=== PATIENT | female | born 1930 | race Caucasian/White ===

== ENCOUNTER 2017-11-02 14:09 | Emergency (ER) | payer MEDICARE, BC ==
[2017-11-02] MEDS ORDERED: traMADol 50 MG Tab PO ONE (14:59)
--- NOTE | 2017-11-02 15:00 | EDM.PDOC ---
ED HPI GENERAL MEDICAL PROBLEM - General Chief Complaint: Back Pain or Injury Stated Complaint: BACK PAIN Time Seen by Provider: 11/02/17 14:17 Source of Information: Reports: Patient History Limitations: Reports: No Limitations - History of Present Illness INITIAL COMMENTS - FREE TEXT/NARRATIVE: 87 y/o F with back pain. Has had pain for three years but it's been much worse for the past 2 weeks. No known injury. Pain is located in lower back and is worse on the R side. Sometimes radiates down R leg. Off and on, worse with movement, difficult to get out of bed in the morning due to pain. No leg weakness or numbness. Is still able to walk. Taking advil and cyclobenzaprine which provides partial relief. Came to ED today because pain has been worsening. No recent illness. Lower Back Pain Score (Numeric/FACES): 7 - Related Data Allergies Allergy/AdvReac Type Severity Reaction Status Date / Time aspirin Allergy Cannot Verified 11/02/17 14:19 Remember paroxetine [From Paxil] Allergy Cannot Verified 11/02/17 14:19 Remember Penicillins Allergy Cannot Verified 11/02/17 14:19 Remember Home Meds: Home Meds Cyclobenzaprine [Flexeril] 5 mg PO ASDIRECTED PRN 11/02/17 [History] Flecainide Acetate 50 mg PO BID 11/02/17 [History] Metoprolol Succinate [Toprol XL] 25 mg PO DAILY 11/02/17 [History] Non-Formulary Medication [NF Drug] 30 mcg PO DAILY 11/02/17 [History] traMADol [Ultram] 50 mg PO TID PRN #30 tablet 11/02/17 [Rx] Past Medical History Cardiovascular History: Reports: Afib Musculoskeletal History: Reports: Arthritis - Past Surgical History GI Surgical History: Reports: Appendectomy Female Surgical History: Reports: Hysterectomy, Other (See Below) Other Female Surgeries/Procedures: lumpectomy Social & Family History - Tobacco Use Smoking Status *Q: Never Smoker Second Hand Smoke Exposure: No - Caffeine Use Caffeine Use: Reports: Coffee - Recreational Drug Use Recreational Drug Use: No ED ROS GENERAL - Review of Systems Review Of Systems: See Below Constitutional: Reports: No Symptoms Respiratory: Reports: No Symptoms Cardiovascular: Reports: No Symptoms GI/Abdominal: Reports: No Symptoms Musculoskeletal: Reports: Back Pain Neurological: Denies: Paresthesia, Difficulty Walking, Weakness ED EXAM,LOWER BACK PAIN/INJURY - Physical Exam Exam: See Below Exam Limited By: No Limitations General Appearance: Alert, WD/WN, No Apparent Distress Eye Exam: Bilateral Eye: Normal Inspection Ears: Normal External Exam Nose: Normal Inspection Throat/Mouth: Normal Inspection, Normal Voice, No Airway Compromise Head: Atraumatic, Normocephalic Neck: Normal Inspection, Supple, Non-Tender, Full Range of Motion Respiratory/Chest: No Respiratory Distress, Lungs Clear, Normal Breath Sounds Cardiovascular: Normal Peripheral Pulses, Regular Rate, Rhythm, No Murmur GI/Abdominal: Soft, Non-Tender, No Distention. No: Rebound Back Exam: Normal Inspection, Vertebral Tenderness (mild, diffuse lumbar area, no step-offs or deformities, skin normal. +paraspinal TTP throughout lower lumbar area. straight leg raise neg bilat. ) Extremities: Normal Inspection, No Pedal Edema Neurological: Alert, Normal Mood/Affect, Normal Dorsiflexion, Normal Plantar Flexion, No Motor/Sensory Deficits, Oriented x 3 Psychiatric: Normal Affect, Normal Mood Skin Exam: Warm, Dry, Intact, Normal Color, No Rash Course - Vital Signs Last Recorded V/S: Last Vital Signs Temp 36.8 C 11/02/17 14:16 Pulse 77 11/02/17 14:16 Resp 18 11/02/17 14:16 BP 140/81 11/02/17 14:16 Pulse Ox 96 11/02/17 14:16 - Orders/Labs/Meds Orders: Active Orders 24 hr Category Date Time Status Hip Min 2V or 3V w Pelvis Rt [CR] Stat Exams 11/02/17 14:59 Taken Lumbar Spine 2 or 3V [CR] Stat Exams 11/02/17 14:59 Taken Meds: Medications Discontinued Medications Generic Name Dose Route Start Last Admin Trade Name Freq PRN Reason Stop Dose Admin Tramadol HCl 50 mg 11/02/17 14:59 11/02/17 15:04 Ultram PO 11/02/17 15:00 50 mg ONETIME ONE Administration - Re-Assessments/Exams Free Text/Narrative Re-Assessment/Exam: 11/02/17 17:22 XR L spine shows diffuse compression deformities and degenerative disease of lumbar spine. CT scan also shows several compression deformities, acuity unknown. Patient feels better after tramadol. She had MRI scheduled for a couple of days ago but was in too much pain so cancelled it. I encouraged her to f/u with her primary care provider this week to reschedule MRI and also discuss possible physical therapy. meanwhile will rx tramadol, discussed risks at length and encouraged her to reserve it for severe pain symptoms. Departure - Departure Time of Disposition: 17:06 Disposition: Home, Self-Care 01 Clinical Impression: Back pain Qualifiers: Back pain location: low back pain Chronicity: acute Back pain laterality: bilateral Sciatica presence: with sciatica Sciatica laterality: sciatica of right side Qualified Code(s): M54.41 - Lumbago with sciatica, right side - Discharge Information Prescriptions: traMADol [Ultram] 50 mg PO TID PRN #30 tablet PRN Reason: Pain Instructions: Back Pain, Adult Referrals: Aisha Lorenzo NP [Primary Care Provider] - Forms: ED Department Discharge Additional Instructions: 1. Take your usual medications for pain. In addition, you may take Tylenol ( acetaminophen). For severe, pain, take Tramadol as prescribed. 2. Follow up with your primary care provider in [place], who can consider referring you to physical therapy and for an MRI. - My Orders Last 24 Hours: My Active Orders 11/02/17 14:59 Hip Min 2V or 3V w Pelvis Rt [CR] Stat Lumbar Spine 2 or 3V [CR] Stat - Assessment/Plan Last 24 Hours: My Active Orders 11/02/17 14:59 Hip Min 2V or 3V w Pelvis Rt [CR] Stat Lumbar Spine 2 or 3V [CR] Stat
--- NOTE | 2017-11-02 16:56 | CT ---
CT lumbar spine Technique: Multiple axial sections were obtained from the top of T10 inferiorly through the L5-S1 disc. Reconstructed sagittal and coronal images were reviewed. Comparison: No previous CT or MRI lumbar spine exam. Findings: Mild endplate concavity is seen within T11. Severe compression deformity is noted of T12. Moderate endplate concavities and compression deformity is noted within L2. Severe compression deformity noted of L3. Moderate compression deformity seen at L5. I do not see a definite acute fracture line although compression deformities can occur without obvious fracture lines and MRI would be needed to evaluate for bone marrow edema to further age these compression deformities if clinically indicated. Scoliosis is seen. Mild retrolisthesis of the posterior vertebral line of T12 is seen by about 3.7 mm. There is sufficient room within the central canal at T12 so this is felt to be incidental. Diffuse circumferential disc bulging is seen throughout the lumbar spine and lower thoracic spine. Degenerative apophyseal change noted throughout the lumbar spine which is most prominent at L4-L5 and L5-S1. No significant central canal stenosis or neural foraminal stenosis is seen. Impression: 1. Scoliosis. 2. Multiple compression deformities. No definite acute fracture line is seen. As mentioned above, MRI would be needed to look for bone marrow edema to rule out an acute compression deformity. 3. Diffuse disc bulging with no definite areas of central or neural foraminal stenosis. Diagnostic code #3
--- NOTE | 2017-11-04 08:33 | CR ---
Lumbar spine: AP, lateral and coned-down lateral views centered to the lumbosacral junction were obtained. Comparison: No prior lumbar spine exam. Compression deformities are seen of T12, L2, L3 and superior endplate concavity of L5. Bony structures are osteoporotic. Scoliosis is noted. Calcifications are seen within the upper right abdomen possibly due to gallstones. No abnormal subluxation is seen. Pedicles are intact. Impression: 1. Multiple compression deformities. Age of these are indeterminate. MRI would be needed to further age these findings if clinically needed. 2. Probable gallstones. 3. Scoliosis and osteoporosis. Diagnostic code #3
--- NOTE | 2017-11-04 08:33 | CR ---
Pelvis and right hip: AP view of the pelvis was obtained as well as AP and frog-leg lateral views of the right hip. Comparison: No prior pelvis or hip exam. Calcification overlying the sacrum is seen. This is felt to represent calcification within lymph nodes and also felt to be incidental. Joint spaces within both hips are maintained. Bony structures are osteopenic. No acute fracture or other abnormality is identified. Impression: 1. Incidental findings. Nothing acute is identified on AP pelvis or on two-view right hip exam. Diagnostic code #2
== END 2017-11-02 17:45 | disposition home or self-care (01) ==
LOC: JD.ED 14:09
DX: M54.41 Lumbago with sciatica, right side (principal); Z88.0 Allergy status to penicillin; Z88.8 Allergy status to other drugs, medicaments and biological substances; Z79.899 Other long term (current) drug therapy
CPT/HCPCS: 72100; 72131; 73502; 99284; A9270; 99283

== ENCOUNTER 2017-12-05 06:33 | Day surgery (SDC) | payer MEDICARE, BC ==
--- NOTE | 2017-11-29 11:09 | HP ---
DATE OF ADMISSION: 12/05/2017 HISTORY OF PRESENT ILLNESS: This is the first orthopedic outpatient admission for surgery for this 87-year- old female who is being admitted with severe painful, osteoporotic compression fracture of T12. The patient suffered the injury in October 2017. She was placed on a conservative treatment program. She has continued to have increasing pain in the back area with the average pain scale of 9 to 10 with any type of activity, her functional activity has decreased to less than 10% of normal. She also underwent an MRI evaluation which shows a fairly significant osteoporotic compression fracture of T12 with a fluid, cystic formation within the vertebral body itself, lending itself to an unstable fracture. The patient has been given the information on kyphoplasty and also a handout. She understands the procedure and has consented to it. PAST MEDICAL HISTORY: ALLERGIES: Aspirin, Paxil, penicillin with hives, clindamycin. PAST SURGICAL HISTORY: Positive. She has had multiple surgeries in the past with no anesthesia complications or problems. PAST MEDICAL HISTORY: She has decreased thyroid function. She has increased cholesterol. She also has a standing history of atrial fibrillation. CURRENT MEDICATIONS: Current medications include thyroid, metoprolol, tramadol for pain control, and Tambocor. BLEEDING HISTORY: Negative. BLOOD CLOT HISTORY: Negative. TOBACCO USE: Nonsmoker. ALCOHOL: Nondrinker. PHYSICAL EXAMINATION: GENERAL: Today, reveals a well-developed, well-nourished, 87-year-old female in [id number] distress. HEAD, EYES, EARS, NOSE AND THROAT: Normocephalic. NECK: Supple. CHEST: Clear. COR: Shows a history of atrial fibrillation. ABDOMEN: Soft. : Intact. MUSCULOSKELETAL: Examination of the thoracolumbar spine reveals positive pain to pressure palpation over the TL junction region. Positive pain with percussion. RADIOGRAPHIC STUDIES: MRI evaluation shows an acute compression fracture of T12 with cyst formation. PLAN: Plan will be for the patient undergo kyphoplasty fracture stabilization of the T12 vertebral body-with a history of clindamycin allergy, I feel that we will go ahead and stabilize this fracture with cement only with no antibiotic. MMODAL /[id number] JANIA
--- NOTE | 2017-12-05 06:29 | PCM.PREANE ---
Preanesthetic Assessment - Anesthesia/Transfusion/Family Hx Anesthesia History: Prior Anesthesia Without Reaction Type of Anesthesia Reaction: Excessive Nausea/Vomiting Family History of Anesthesia Reaction: No Transfusion History: No Prior Transfusion(s) Intubation History: Unknown - Review of Systems General: Weakness, Fatigue, Malaise Pulmonary: No Symptoms Cardiovascular: No Symptoms (History of HTN, atrial fibrillation, and tachycardia), Palpitations (History of Atrial fibrillation, currently in SR.) Gastrointestinal: No Symptoms (GERD), Decreased Appetite Neurological: No Symptoms (history of back pain/ history of motion sickness), Weakness Other: Reports: Thyroid Problems (hypothyroid), Depression, Anxiety (History of anxiety ) - Physical Assessment NPO Status Date: 12/04/17 NPO Status Time: 17:00 Pulse: 70 O2 Sat by Pulse Oximetry: 97 Respiratory Rate: 16 Blood Pressure: 130/80 Temperature: 36.7 C Height: 1.55 m Weight: 45 kg ASA Class: 2 Mental Status: Alert & Oriented x3 Airway Class: Mallampati = 2 Dentition: Reports: Normal Dentition, Missing Tooth/Teeth, Caries Thyro-Mental Finger Breadths: 3 Mouth Opening Finger Breadths: 3 ROM/Head Extension: Full Lungs: Clear to Auscultation, Normal Respiratory Effort Cardiovascular: Regular Rate, Regular Rhythm, No Murmurs - Lab Values: MRSA - All lab values reviewed and noted and within acceptable ranges to proceed with scheduled procedure. - Imaging/EKG Impressions: EKG: SR rate= 74, borderline prolonged QT interval - Allergies Allergies/Adverse Reactions: Allergies Allergy/AdvReac Type Severity Reaction Status Date / Time aspirin Allergy Cannot Verified 12/04/17 15:42 Remember paroxetine [From Paxil] Allergy Cannot Verified 12/04/17 15:42 Remember Penicillins Allergy Cannot Verified 12/04/17 15:42 Remember procaine [From Novocain] Allergy Tachycardia Verified 12/04/17 15:42 - Anesthesia Plan Pre-Op Medication Ordered: Beta Hemant Beta Hemant: Metoprolol Med Last Dose Date: 12/04/17 Med Last Dose Time: 06:00 - Acknowledgements Anesthesia Type Planned: MAC (Local/Mac) Pt an Appropriate Candidate for the Planned Anesthesia: Yes Alternatives and Risks of Anesthesia Discussed w Pt/Guardian: Yes Pt/Guardian Understands and Agrees with Anesthesia Plan: Yes PreAnesthesia Questionnaire HEENT History: Reports: Impaired Vision Cardiovascular History: Reports: Afib, High Cholesterol, Hypertension, Other ( See Below) Other Cardiovascular History: tachycardia Respiratory History: Reports: None Gastrointestinal History: Reports: Irritable Bowel Syndrome [employer]IST History: Reports: None Musculoskeletal History: Reports: Arthritis, Other (See Below) Other Musculoskeletal History: compression fracture Neurological History: Reports: None Psychiatric History: Reports: Anxiety Endocrine/Metabolic History: Reports: None Hematologic History: Reports: Anemia Immunologic History: Reports: None Oncologic (Cancer) History: Reports: None Dermatologic History: Reports: None - Past Surgical History Head Surgeries/Procedures: Reports: None HEENT Surgical History: Reports: Cataract Surgery, Other (See Below) Other HEENT Surgeries/Procedures: salivary stone extraction Cardiovascular Surgical History: Reports: Varicose Respiratory Surgical History: Reports: None GI Surgical History: Reports: Appendectomy Female Surgical History: Reports: Hysterectomy, Oophorectomy, Other (See Below) Other Female Surgeries/Procedures: breast lumpectomy, lymph node removed from left arm Endocrine Surgical History: Reports: None Neurological Surgical History: Reports: None Oncologic Surgical History: Reports: None Dermatological Surgical History: Reports: None - SUBSTANCE USE Smoking Status *Q: Never Smoker Tobacco Use Within Last Twelve Months: No Second Hand Smoke Exposure: No Recreational Drug Use History: No - HOME MEDS Home Medications: Home Meds Cyclobenzaprine [Flexeril] 5 mg PO ASDIRECTED PRN 11/02/17 [History] Flecainide Acetate 50 mg PO BID 11/02/17 [History] Metoprolol Succinate [Toprol XL] 25 mg PO DAILY 11/02/17 [History] traMADol [Ultram] 50 mg PO TID PRN #30 tablet 11/02/17 [Rx] Cholecalciferol (Vitamin D3) [Vitamin D3] 1,000 unit PO DAILY 12/04/17 [History] [place]-3S/DHA/Epa/Fish Oil [[place]-3 Fish Oil 1,000 mg Sfgl] 1 cap PO DAILY [History] Thyroid [[place] Thyroid] 30 mg PO DAILY 12/04/17 [History] - CURRENT (IN HOUSE) MEDS Current Meds: Current Medications Lactated Ringer's (Ringers, Lactated) 1,000 mls @ 125 mls/hr IV ASDIRECTED CHLOE Stop: 12/05/17 23:00 Lidocaine/Sodium Bicarbonate (Buffered Lidocaine 1% In Ns 8.4%) 0.25 ml .XX ONETIME PRN PRN Reason: Prior to IV Start Stop: 12/05/17 18:00 Sodium Chloride (Saline Flush) 10 ml FLUSH ASDIRECTED PRN PRN Reason: Keep Vein Open Stop: 12/05/17 18:00
[~2017-12-05 06:33] MED LIST: Lactated Ringers 1,000 ML IV SCH; Lidocaine 1%/Sod Bicarbonate in NS 8.4% 1 ML Syringe PRN; Sodium Chloride 0.9% 10 ML Syringe FLUSH PRN
[2017-12-05] MEDS ORDERED: Iopamidol 612 MG/ML 50 ML SDV ONE (06:56)
[2017-12-05] MEDS ORDERED: Lidocaine 1% with EPINEPHrine 1:100,000 20 ML MDV ONE (06:56)
[2017-12-05] MEDS ORDERED: ceFAZolin 1 GM Vial ONE (07:00)
[2017-12-05] MEDS ORDERED: Propofol 200 MG/20 ML SDV ONE (07:00)
[2017-12-05] MEDS ORDERED: Lidocaine 1% 6 ML ONE (07:00)
[2017-12-05] MEDS ORDERED: Ondansetron 4 MG/2 ML SDV ONE (07:00)
[2017-12-05] MEDS ORDERED: fentaNYL 100 MCG/2 ML SDV ONE (07:01)
[2017-12-05] MEDS ORDERED: Acetaminophen/HYDROcodone 325-5 MG Tab PO PRN (07:43)
[2017-12-05] MEDS ORDERED: Ondansetron 4 MG/2 ML SDV IVPUSH PRN (07:43)
[2017-12-05] MEDS ORDERED: Cyclobenzaprine 10 MG Tab PO PRN (07:43)
[2017-12-05] MEDS ORDERED: Ketorolac 15 MG/ML SDV IVPUSH PRN (07:43)
[2017-12-05] MEDS ORDERED: HYDROmorphone 0.5 MG/0.5 ML Syringe IVPUSH PRN (08:14)
[2017-12-05] MEDS ORDERED: diphenhydrAMINE 50 MG/ML SDV IVPUSH PRN (08:14)
--- NOTE | 2017-12-05 09:06 | PCM48HPAN ---
Post Anesthesia Note - EVALUATION WITHIN 48HRS OF ANESTHETIC Vital Signs in Normal Range: Yes Patient Participated in Evaluation: Yes Respiratory Function Stable: Yes Airway Patent: Yes Cardiovascular Function Stable: Yes Hydration Status Stable: Yes Pain Control Satisfactory: Yes Nausea and Vomiting Control Satisfactory: Yes Mental Status Recovered: Yes
--- NOTE | 2017-12-05 10:08 | CR ---
Thoracic spine: Multiple fluoroscopic spot views were obtained centered to the T12 level. Study shows vertebroplasty procedure. Fluoroscopy time given as 432.9 seconds. Impression: 1. Procedural study as noted above. Diagnostic code #2
--- NOTE | 2017-12-05 12:02 | OR ---
DATE OF OPERATION: 12/05/2017 SURGEON: Wero Trevino MD PREOPERATIVE DIAGNOSIS: Acute osteoporotic compression fracture, T12, intractable pain. POSTOPERATIVE DIAGNOSIS: Acute osteoporotic compression fracture, T12, intractable pain. ANESTHESIA: Sedation with 1% lidocaine with epinephrine. OPERATION PERFORMED: 1. Kyphoplasty fracture stabilization at T12 vertebral body. 2. Biopsy of T12 vertebral body. DESCRIPTION OF PROCEDURE: The patient was taken to the operative room in a supine position, where she was placed under light sedation and then transferred to the operating table in a prone position. Once the patient was positioned, the fluoroscopy was brought in to identify the level of surgery at T12. Once that was confirmed, the operation proceeded with marking of the pedicles, and then prepping and draping was carried out for the thoracic lumbar spine region for surgery by standard technique. After prepping and draping, the operation then proceeded. By fluoroscopic guidance, the local infiltration was carried over the skin on the pedicles on the right and left side of T12 and then the infiltration, lidocaine with epinephrine, was carried down to the pedicle itself, anesthetizing the area on both sides. Once that was completed, 2 small stab incisions were used on the right and left sides. Instrumentation with the kyphoplasty unit was then carried out with the instruments being carried down through the pedicle into the posterior aspect of the vertebral body. Biopsy was then taken on both the right and left sides, and a similar technique was used on the left side as the right side. Biopsies were taken on both sides and then the operation proceeded with placement of balloons. Approximately, 1.5 mL of inflation was carried out. Immediate note, the posterior portion of vertebral body was fairly firm, but once the center of the vertebral body was reached with a biopsy, there was complete hollow and fluid was filling the vertebral body. Once the balloons were in place, the operation proceeded with placement of cement. Approximately 2.5 mL of cement was placed on each side, totalling 5 mL. This gave a very good solid fill of the vertebral body, filling in the area that was fractured and, especially, the hollow-type area that could be seen on the MRI. Once the cement had hardened, the instruments were withdrawn. The final x-rays showed it to be very satisfactory with good cement filling of the vertebral body itself. The operation then proceeded with closure of the skin with 3-0 Prolene. Standard dressings were applied. The patient tolerated this procedure well. She left the operating room in a stable condition to room for recovery. ESTIMATED BLOOD LOSS: MMODAL /[id number]
== END 2017-12-05 12:25 | disposition home or self-care (01) ==
LOC: JD.SDS 06:33
PROVIDERS: ATTEND Specialist
DX: M80.88XA Other osteoporosis with current pathological fracture, vertebra(e), initial encounter for fracture (principal); I48.91 Unspecified atrial fibrillation; E78.00 Pure hypercholesterolemia, unspecified; I10 Essential (primary) hypertension; M19.90 Unspecified osteoarthritis, unspecified site; F41.9 Anxiety disorder, unspecified; Z98.890 Other specified postprocedural states; Z88.6 Allergy status to analgesic agent; Z88.0 Allergy status to penicillin; Z88.8 Allergy status to other drugs, medicaments and biological substances; Z88.1 Allergy status to other antibiotic agents; Z90.710 Acquired absence of both cervix and uterus; Z90.722 Acquired absence of ovaries, bilateral; Z79.899 Other long term (current) drug therapy
CPT/HCPCS: 22513; 93005; J0690; J1200; J2405; J3010; J7120; Q9967; 01936; 88305; 88311; C1713; J2704

== ENCOUNTER 2017-12-30 16:43 | Observation (INO) | payer MEDICARE, BC ==
[2017-12-30] MEDS ORDERED: Sodium Chloride 0.9% 10 ML Syringe FLUSH PRN (17:13)
[2017-12-30] MEDS ORDERED: HYDROmorphone 1 MG/ML Syringe IVPUSH ONE (17:13)
[2017-12-30] MEDS ORDERED: Ondansetron 4 MG/2 ML SDV IVPUSH ONE (17:16)
--- NOTE | 2017-12-30 17:16 | EDM.PDOC ---
ED HPI GENERAL MEDICAL PROBLEM - General Chief Complaint: Back Pain or Injury Stated Complaint: [facility] Time Seen by Provider: 12/30/17 16:48 Source of Information: Reports: Patient, RN Notes Reviewed - History of Present Illness INITIAL COMMENTS - FREE TEXT/NARRATIVE: 87-year-old lady comes in with severe back pain. She had a kyphoplasty about 1 month ago and did really well postoperatively she's been getting along quite well with minimal back discomfort up until about 2 or 3 days ago. She started having increasing low back discomfort 2 days ago which became much worse yesterday. That became even worse today to the point where family was unable to even help her get up and walk. For ambulance was called she has been transported here without further incident. The pain is in her low back with some radiation down toward the buttocks bilaterally. Her previous kyphoplasty was in her mid back. There's been no fall or injury. The pain is not bad at rest but quite severe with any type of motion. she has been taking Advil 600 mg once or twice a day. No cough, chest pain or difficulty breathing. No fever or chills. No abdominal pain nausea or vomiting. Bilateral Lower Back Pain Score (Numeric/FACES): 10 - Related Data Allergies Allergy/AdvReac Type Severity Reaction Status Date / Time paroxetine [From Paxil] Allergy Cannot Verified 12/30/17 16:56 Remember Penicillins Allergy Cannot Verified 12/30/17 16:56 Remember aspirin AdvReac Stomach Verified 12/30/17 16:56 Upset clindamycin AdvReac Weakness Verified 01/01/18 08:13 procaine [From Novocain] AdvReac Tachycardia Verified 12/30/17 16:56 Home Meds: Home Meds Cyclobenzaprine [Flexeril] 5 mg PO ASDIRECTED PRN 11/02/17 [History] Flecainide Acetate 50 mg PO BID 11/02/17 [History] Metoprolol Succinate [Toprol XL] 25 mg PO DAILY 11/02/17 [History] traMADol [Ultram] 50 mg PO TID PRN #30 tablet 11/02/17 [Rx] Cholecalciferol (Vitamin D3) [Vitamin D3] 1,000 unit PO DAILY 12/04/17 [History] [place]-3S/DHA/Epa/Fish Oil [[place]-3 Fish Oil 1,000 mg Sfgl] 1 cap PO DAILY [History] Thyroid [[place] Thyroid] 30 mg PO DAILY 12/04/17 [History] Calcium Carbonate [Tums Extra Strength] 1 tab PO ASDIRECTED PRN 12/30/17 [ History] Hypromellose [Genteal Mild] 1 drop EYEBOTH DAILY 12/30/17 [History] Celecoxib [CeleBREX] 100 mg PO BID #40 cap 01/01/18 [Rx] Past Medical History HEENT History: Reports: Impaired Vision Cardiovascular History: Reports: Afib, High Cholesterol, Hypertension, Other ( See Below) Other Cardiovascular History: tachycardia Respiratory History: Reports: None Gastrointestinal History: Reports: Irritable Bowel Syndrome [employer]INTE[employer]ER History: Reports: None Musculoskeletal History: Reports: Arthritis, Other (See Below) Other Musculoskeletal History: compression fracture Neurological History: Reports: None Psychiatric History: Reports: Anxiety Endocrine/Metabolic History: Reports: Hypothyroidism Hematologic History: Reports: Anemia Immunologic History: Reports: None Oncologic (Cancer) History: Reports: None Dermatologic History: Reports: None - Past Surgical History Head Surgeries/Procedures: Reports: None HEENT Surgical History: Reports: Cataract Surgery, Other (See Below) Other HEENT Surgeries/Procedures: salivary stone extraction Cardiovascular Surgical History: Reports: Varicose Respiratory Surgical History: Reports: None GI Surgical History: Reports: Appendectomy Female Surgical History: Reports: Hysterectomy, Oophorectomy, Other (See Below) Other Female Surgeries/Procedures: breast lumpectomy, lymph node removed from left arm Endocrine Surgical History: Reports: None Neurological Surgical History: Reports: None Musculoskeletal Surgical History: Reports: Other (See Below) Other Musculoskeletal Surgeries/Procedures:: kyphoplasty Oncologic Surgical History: Reports: None Dermatological Surgical History: Reports: None Social & Family History - Family History Family Medical History: Noncontributory - Tobacco Use Smoking Status *Q: Never Smoker Second Hand Smoke Exposure: No - Caffeine Use Caffeine Use: Reports: Coffee - Recreational Drug Use Recreational Drug Use: No ED ROS GENERAL - Review of Systems Review Of Systems: See Below Constitutional: Denies: Fever, Chills, Diaphoresis HEENT: Denies: Throat Pain Respiratory: Denies: Shortness of Breath Cardiovascular: Denies: Chest Pain GI/Abdominal: Denies: Abdominal Pain, Nausea, Vomiting : Reports: No Symptoms Musculoskeletal: Reports: Back Pain (Severe low back discomfort radiating to buttocks bilaterally, worse with motion) Skin: Reports: No Symptoms. Denies: Rash Neurological: Denies: Numbness, Tingling ED EXAM,LOWER BACK PAIN/INJURY - Physical Exam Exam: See Below General Appearance: Alert, Mild Distress, Other (Severe pain with any type of motion such as sitting up for exam of back) Eye Exam: Bilateral Eye: PERRL Throat/Mouth: Normal Inspection Head: Atraumatic Neck: Supple, Full Range of Motion Respiratory/Chest: No Respiratory Distress, Lungs Clear, Normal Breath Sounds Cardiovascular: Regular Rate, Rhythm GI/Abdominal: Soft, Non-Tender Back Exam: Other (Small pinpoint scars mid back area of prior kyphoplasty of healed well, no unusual swelling or erythema). No: Paraspinal Tenderness, Vertebral Tenderness Extremities: Normal Inspection, Normal Range of Motion. No: Leg Pain, Increased Warmth, Redness Neurological: Alert, No Motor/Sensory Deficits Skin Exam: Warm, Dry, Normal Color Course - Vital Signs Last Recorded V/S: Last Vital Signs Temp 97.9 F 01/01/18 10:00 Pulse 69 01/01/18 10:00 Resp 16 01/01/18 10:00 BP 117/75 01/01/18 10:00 Pulse Ox 93 L 01/01/18 10:00 - Orders/Labs/Meds Orders: Medication Orders Hydrocodone Bitart/Acetaminophen ([place] 325-5 Mg) 1 tab PO Q6H PRN PRN Reason: Pain Bisacodyl (Dulcolax) 5 mg PO DAILY PRN PRN Reason: Constipation Celecoxib (Celebrex) 100 mg PO BID [facility] Last Admin: 01/01/18 09:57 Dose: 100 mg Cholecalciferol (Vitamin D3) 1,000 units PO DAILY [facility] Last Admin: 01/01/18 09:58 Dose: 1,000 units Admin: 12/31/17 10:27 Dose: 1,000 units Cyclobenzaprine HCl (Flexeril) 2.5 - 5 mg PO Q8H PRN PRN Reason: Muscle Spasm Docusate Sodium (Colace) 100 mg PO BID PRN PRN Reason: Constipation Enoxaparin Sodium (Lovenox) 30 mg SUBCUT DAILY [facility] Last Admin: 01/01/18 09:58 Dose: 30 mg Admin: 12/31/17 11:20 Dose: 30 mg Fish Oil (Fish Oil) 1 gm PO DAILY [facility] Last Admin: 01/01/18 09:58 Dose: 1 gm Admin: 12/31/17 10:25 Dose: 1 gm Flecainide Acetate (Tambocor) 50 mg PO BID [facility] Last Admin: 01/01/18 09:58 Dose: 50 mg Admin: 12/31/17 22:23 Dose: 50 mg Admin: 12/31/17 10:28 Dose: Admin: 12/31/17 10:25 Dose: 50 mg Hydromorphone HCl (Dilaudid) 1 mg IVPUSH Q4H PRN PRN Reason: Pain Metoprolol Succinate (Toprol Xl) 25 mg PO DAILY [facility] Last Admin: 01/01/18 09:58 Dose: 25 mg Admin: 12/31/17 10:26 Dose: 25 mg Ondansetron HCl (Zofran Odt) 4 mg PO Q6H PRN PRN Reason: nausea, able to take PO Ondansetron HCl (Zofran) 4 mg IV Q6H PRN PRN Reason: Nausea/Vomiting Hypromellose [ (Genteal Mild] 1 Drop) 0 each EYEBOTH DAILY [facility] Last Admin: 01/01/18 09:58 Dose: 2 each Admin: 12/31/17 10:26 Dose: Not Given [place] Thyroid 30 Mg 0 each PO DAILY [facility] Last Admin: 01/01/18 09:58 Dose: Admin: 12/31/17 10:26 Dose: Calcium Carbonate 1 (Tab) 0 each PO Q4H PRN PRN Reason: HEARTBURN Polyethylene Glycol (Miralax) 17 gm PO DAILY PRN PRN Reason: Constipation Senna/Docusate Sodium (Senna Plus) 1 tab PO BID PRN PRN Reason: Constipation Sodium Chloride (Saline Flush) 10 ml FLUSH ASDIRECTED PRN PRN Reason: Keep Vein Open Last Admin: 12/30/17 17:41 Dose: 10 ml Tramadol HCl (Ultram) 50 mg PO TID PRN PRN Reason: Pain Last Admin: 01/01/18 11:44 Dose: 50 mg Admin: 01/01/18 04:31 Dose: 50 mg Admin: 12/31/17 18:09 Dose: 50 mg Labs: Laboratory Tests 02/12/18 02/12/18 Range/Units 17:42 17:42 WBC 6.19 (3.98-10.04) K/mm3 RBC 4.15 (3.98-5.22) M/mm3 Hgb 12.5 (11.2-15.7) gm/L Hct 38.3 (34.1-44.9) % MCV 92.3 (79.4-94.8) fl MCH 30.1 (25.6-32.2) pg MCHC 32.6 (32.2-35.5) g/dl RDW Std Deviation 45.9 (36.4-46.3) fL Plt Count 203 (182-369) K/mm3 MPV 10.0 (9.4-12.3) fl Neut % (Auto) 61.9 (34.0-71.1) % Lymph % (Auto) 21.6 (19.3-51.7) % [place] % (Auto) 13.6 H (4.7-12.5) % Eos % (Auto) 2.4 (0.7-5.8) Baso % (Auto) 0.3 (0.1-1.2) % Neut # (Auto) 3.83 (1.56-6.13) K/mm3 Lymph # (Auto) 1.34 (1.18-3.74) K/mm3 [place] # (Auto) 0.84 H (0.24-0.36) K/mm3 Eos # (Auto) 0.15 (0.04-0.36) K/mm3 Baso # (Auto) 0.02 (0.01-0.08) K/mm3 Sodium 141 (136-145) mEq/L Potassium 3.1 L (3.5-5.1) mEq/L Chloride 104 (98-107) mEq/L Carbon Dioxide 25 (21-32) mEq/L Anion Gap 15.1 H (5-15) BUN 15 (7-18) mg/dL Creatinine 1.1 H (0.55-1.02) mg/dL Est Cr Clr Drug Dosing 27.70 mL/min Estimated GFR (MDRD) 47 (>60) mL/min BUN/Creatinine Ratio 13.6 L (14-18) Glucose 109 (83-115) mg/dL Calcium 9.2 (8.5-10.1) mg/dL Total Bilirubin 0.5 (0.2-1.0) mg/dL AST 22 (15-37) U/L ALT 16 (14-59) U/L Alkaline Phosphatase 72 (46-116) U/L Total Protein 7.6 (6.4-8.2) g/dl Albumin 3.1 L (3.4-5.0) g/dl Globulin 4.5 gm/dL Albumin/Globulin Ratio 0.7 L (1-2) Meds: Medications Generic Name Dose Route Start Last Admin Trade Name Freq PRN Reason Stop Dose Admin Hydrocodone Bitart/Acetaminophen 1 tab 12/30/17 20:21 [place] 325-5 Mg PO Q6H PRN Pain Bisacodyl 5 mg 12/31/17 18:27 Dulcolax PO DAILY PRN Constipation Celecoxib 100 mg 01/01/18 09:00 01/01/18 09:57 Celebrex PO 100 mg BID [facility] Administration Cholecalciferol 1,000 units 12/31/17 09:00 01/01/18 09:58 Vitamin D3 PO 1,000 units DAILY [facility] Administration Cyclobenzaprine HCl 2.5 - 5 mg 12/30/17 20:18 Flexeril PO Q8H PRN Muscle Spasm Docusate Sodium 100 mg 12/31/17 18:27 Colace PO BID PRN Constipation Enoxaparin Sodium 30 mg 12/31/17 11:00 01/01/18 09:58 Lovenox SUBCUT 30 mg DAILY [facility] Administration Fish Oil 1 gm 12/31/17 09:00 01/01/18 09:58 Fish Oil PO 1 gm DAILY [facility] Administration Flecainide Acetate 50 mg 12/30/17 21:00 01/01/18 09:58 Tambocor PO 50 mg BID [facility] Administration Hydromorphone HCl 1 mg 12/30/17 20:20 Dilaudid IVPUSH Q4H PRN Pain Metoprolol Succinate 25 mg 12/31/17 09:00 01/01/18 09:58 Toprol Xl PO 25 mg DAILY [facility] Administration Ondansetron HCl 4 mg 12/31/17 18:27 Zofran Odt PO Q6H PRN nausea, able to take PO Ondansetron HCl 4 mg 12/31/17 18:27 Zofran IV Q6H PRN Nausea/Vomiting Hypromellose [ 0 each 12/31/17 09:00 01/01/18 09:58 Genteal Mild] 1 Drop EYEBOTH 2 each DAILY [facility] Administration [place] Thyroid 30 Mg 0 each 12/31/17 09:00 01/01/18 09:58 PO Not Given DAILY [facility] Calcium Carbonate 1 0 each 01/01/18 08:14 Tab PO Q4H PRN HEARTBURN Polyethylene Glycol 17 gm 12/31/17 18:27 Miralax PO DAILY PRN Constipation Senna/Docusate Sodium 1 tab 12/31/17 18:27 Senna Plus PO BID PRN Constipation Sodium Chloride 10 ml 12/30/17 17:13 12/30/17 17:41 Saline Flush FLUSH 10 ml ASDIRECTED PRN Administration Keep Vein Open Tramadol HCl 50 mg 12/30/17 20:18 01/01/18 11:44 Ultram PO 50 mg TID PRN Administration Pain Discontinued Medications Generic Name Dose Route Start Last Admin Trade Name Freq PRN Reason Stop Dose Admin Acetaminophen 650 mg 12/30/17 17:32 12/30/17 17:41 Tylenol PO 12/30/17 17:33 650 mg NOW ONE Administration Hydromorphone HCl 0.25 mg 12/30/17 17:13 12/30/17 17:42 Dilaudid IVPUSH 12/30/17 17:14 Not Given ONETIME ONE Hydromorphone HCl Confirm 12/30/17 17:26 12/30/17 17:43 Dilaudid Administered 12/30/17 17:27 0.25 mg Dose Administration 0.5 mg .ROUTE .STK-MED ONE Sodium Chloride 1,000 mls @ 50 mls/hr 12/31/17 13:15 12/31/17 13:41 Sodium Chloride 0.45% IV 01/01/18 01:15 50 mls/hr ASDIRECTED [facility]E Administration Ketorolac Tromethamine 15 mg 12/30/17 20:23 01/01/18 02:00 Toradol IVPUSH 15 mg Q8H PRN Administration Pain Lorazepam 0.25 mg 12/30/17 17:33 12/30/17 17:41 Ativan PO 12/30/17 17:34 0.25 mg ONETIME ONE Administration Calcium Carbonate 1 0 tab 12/30/17 20:18 Tab PO Q4H PRN HEARTBURN Ondansetron HCl 4 mg 12/30/17 17:16 12/30/17 17:43 Zofran IVPUSH 12/30/17 17:17 4 mg ONETIME ONE Administration Pneumococcal 13-Valent Conj Vacc 0.5 ml 01/01/18 12:09 01/01/18 13:29 Prevnar 13 IM 01/01/18 12:10 Not Given .ONCE ONE Pneumococcal Polyvalent Vaccine 0.5 ml 12/31/17 11:00 01/01/18 13:29 Pneumovax 23 IM 12/31/17 11:01 Not Given .ONCE ONE Potassium Chloride 40 meq 12/31/17 10:30 12/31/17 22:22 Klor-Con M20 PO 01/01/18 23:00 40 meq BID [facility]E Administration - Re-Assessments/Exams Free Text/Narrative Re-Assessment/Exam: 12/30/17 18:44 X-rays of the low back do show the area of prior kyphoplasty. There are severe degenerative changes up and down her spine. Lumbar spine not well visualized due to a lot of overlying shadows. It does look like there is probable compression deformity of L3 and also L1. 12/30/17 18:46. We have given 0.25 milligrams Dilaudid IV, Ativan 0.25 mg IV, Tylenol 650 mg by mouth. With that our nurses did have her to the bathroom a short time ago. Watch her transferring from wheelchair to her bed she did not do well with that at all, had quite a lot of severe pain even with 2 staff nurses helping her. Look like she is a candidate to go home tonight. She lives alone. Family could be with her some of the time tonight but she will have nobody with her tomorrow. Therefore I'm going to see if we can possibly get her admitted observation status for pain management and control, Orthopedic consult in the morning. Departure - Departure Time of Disposition: 19:04 Disposition: Refer to Observation Condition: Poor Clinical Impression: Low back pain Qualifiers: Chronicity: acute Back pain laterality: midline Sciatica presence: without sciatica Qualified Code(s): M54.5 - Low back pain - Discharge Information ED Communication - Discussed Case With (1) Discussed Case With (1): Admitting Provider (Dr. Krause, decision to admit at about 19:00.)
[2017-12-30] MEDS ORDERED: HYDROmorphone 0.5 MG/0.5 ML SYRINGE ONE (17:26)
[2017-12-30] MEDS ORDERED: Acetaminophen 325 MG Tab PO ONE (17:32)
[2017-12-30] MEDS ORDERED: LORazepam 0.5 MG Tab PO ONE (17:33)
--- NOTE | 2017-12-30 20:15 | PCM.HP ---
H&P History of Present Illness - General Date of Service: 12/30/17 Source of Information: Family, Provider History Limitations: Reports: No Limitations - History of Present Illness Initial Comments - Free Text/Narative: 87 year old female with history of chronic back pain, presents with acute back without response to analgesics in the ED. She has had a kyphoplasty involving T12 since her last ED visit in October 2017. She has had lower back pain for 3 -4 days without relief from OTC NSAIDS. The pain occurs with movement, and is described as a sharp pain into her buttocks. She denies recent trauma or heavy lifting. There has been no fever/chills, or changed in GI/ habits. The patient will be admitted to OBS with telemetry. Onset of Symptoms: Reports: Sudden Symptom Onset Date: 12/27/17 Duration of Symptoms: Reports: Day(s):, Getting Worse Location: Reports: Back Quality: Reports: Same as Previous Episode Severity: Moderate Improves with: Reports: Medication Worsens with: Reports: Movement Associated Symptoms: Reports: Weakness Bilateral Lower Back Pain Score (Numeric/FACES): 10 - Related Data Allergies/Adverse Reactions: Allergies Allergy/AdvReac Type Severity Reaction Status Date / Time clindamycin Allergy Weakness Verified 12/30/17 16:56 paroxetine [From Paxil] Allergy Cannot Verified 12/30/17 16:56 Remember Penicillins Allergy Cannot Verified 12/30/17 16:56 Remember aspirin AdvReac Stomach Verified 12/30/17 16:56 Upset procaine [From Novocain] AdvReac Tachycardia Verified 12/30/17 16:56 Home Medications: Home Meds Cyclobenzaprine [Flexeril] 5 mg PO ASDIRECTED PRN 11/02/17 [History] Flecainide Acetate 50 mg PO BID 11/02/17 [History] Metoprolol Succinate [Toprol XL] 25 mg PO DAILY 11/02/17 [History] traMADol [Ultram] 50 mg PO TID PRN #30 tablet 11/02/17 [Rx] Cholecalciferol (Vitamin D3) [Vitamin D3] 1,000 unit PO DAILY 12/04/17 [History] [place]-3S/DHA/Epa/Fish Oil [[place]-3 Fish Oil 1,000 mg Sfgl] 1 cap PO DAILY [History] Thyroid [[place] Thyroid] 30 mg PO DAILY 12/04/17 [History] Calcium Carbonate [Tums Extra Strength] 1 tab PO ASDIRECTED PRN 12/30/17 [ History] Hypromellose [Gente[place] Mild] 1 drop EYEBOTH DAILY 12/30/17 [History] Ibuprofen [Advil] 600 mg PO BID 12/30/17 [History] Past Medical History HEENT History: Reports: Impaired Vision Cardiovascular History: Reports: Afib, High Cholesterol, Hypertension, Other ( See Below) Other Cardiovascular History: tachycardia Respiratory History: Reports: None Gastrointestinal History: Reports: Irritable Bowel Syndrome 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 Musculoskeletal History: Reports: Arthritis, Other (See Below) Other Musculoskeletal History: compression fracture Neurological History: Reports: None Psychiatric History: Reports: Anxiety Endocrine/Metabolic History: Reports: Hypothyroidism Hematologic History: Reports: Anemia Immunologic History: Reports: None Oncologic (Cancer) History: Reports: None Dermatologic History: Reports: None - Past Surgical History Head Surgeries/Procedures: Reports: None HEENT Surgical History: Reports: Cataract Surgery, Other (See Below) Other HEENT Surgeries/Procedures: salivary stone extraction Cardiovascular Surgical History: Reports: Varicose Respiratory Surgical History: Reports: None GI Surgical History: Reports: Appendectomy Female Surgical History: Reports: Hysterectomy, Oophorectomy, Other (See Below) Other Female Surgeries/Procedures: breast lumpectomy, lymph node removed from left arm Endocrine Surgical History: Reports: None Neurological Surgical History: Reports: None Musculoskeletal Surgical History: Reports: Other (See Below) Other Musculoskeletal Surgeries/Procedures:: kyphoplasty Oncologic Surgical History: Reports: None Dermatological Surgical History: Reports: None Social & Family History - Family History Family Medical History: Noncontributory - Tobacco Use Smoking Status *Q: Never Smoker Second Hand Smoke Exposure: No - Caffeine Use Caffeine Use: Reports: Coffee - Recreational Drug Use Recreational Drug Use: No H&P Review of Systems - Review of Systems: Review Of Systems: See Below General: Reports: Weakness HEENT: Reports: No Symptoms Pulmonary: Reports: No Symptoms Cardiovascular: Reports: No Symptoms Gastrointestinal: Reports: No Symptoms Genitourinary: Reports: No Symptoms Musculoskeletal: Reports: Back Pain (lumbar with radiation) Skin: Reports: No Symptoms Psychiatric: Reports: No Symptoms Neurological: Reports: Difficulty Walking, Weakness Hematologic/Lymphatic: Reports: No Symptoms Immunologic: Reports: No Symptoms Exam - Exam Exam: See Below - Vital Signs Vital Signs: Last Vital Signs Temp 36.8 C 12/30/17 16:49 Pulse 83 12/30/17 16:49 Resp 18 12/30/17 16:49 BP 177/94 H 12/30/17 16:49 Pulse Ox 98 12/30/17 16:49 Weight: 50.349 kg - Exam Quality Assessment: Supplemental Oxygen General: Alert, Oriented, Cooperative HEENT: Conjunctiva Clear, Pupils Equal, Pupils Reactive Neck: Trachea Midline Lungs: Normal Respiratory Effort, Decreased Breath Sounds Cardiovascular: Regular Rate GI/Abdominal Exam: Normal Bowel Sounds, Soft, Non-Tender, No Organomegaly, No Distention (Female) Exam: Deferred Rectal (Female) Exam: Deferred Back Exam: Normal Inspection, Paraspinal Tenderness Extremities: Normal Inspection Skin: Warm Neurological: Cranial Nerves Intact Neuro Extensive - Mental Status: Alert, Oriented x3, Normal Mood/Affect, Normal Cognition, Memory Intact Neuro Extensive - Motor, Sensory, Reflexes: CN II-XII Intact - Patient Data Result Diagrams: 12/30/17 17:42 12/30/17 17:42 *Q Meaningful Use (ADM) - VTE *Q VTE Criteria *Q: - Stroke *Q Stroke Criteria *Q: - AMI *Q AMI Criteria *Q: - Problem List (1) Hypertension SNOMED Code(s): 12422888 ICD Code: I10 - ESSENTIAL (PRIMARY) HYPERTENSION Status: Acute Current Visit: Yes (2) Hyperlipidemia SNOMED Code(s): 89391589 ICD Code: E78.5 - HYPERLIPIDEMIA, UNSPECIFIED Status: Acute Current Visit : Yes (3) Hypothyroid SNOMED Code(s): 99090456 ICD Code: E03.9 - HYPOTHYROIDISM, UNSPECIFIED Status: Acute Current Visit : Yes (4) Irritable bowel syndrome (IBS) SNOMED Code(s): 05516515 ICD Code: K58.9 - IRRITABLE BOWEL SYNDROME WITHOUT DIARRHEA Status: Acute Current Visit: Yes (5) Compression fracture SNOMED Code(s): 794880740 ICD Code: [id number] - Status: Acute Current Visit: Yes (6) Low back pain SNOMED Code(s): 400274710 ICD Code: M54.5 - LOW BACK PAIN Status: Acute Current Visit: Yes Qualifiers: Chronicity: acute Back pain laterality: midline Sciatica presence: without sciatica Qualified Code(s): M54.5 - Low back pain (7) Back pain SNOMED Code(s): 702976262 ICD Code: M54.9 - DORSALGIA, UNSPECIFIED Status: Acute Current Visit: No Qualifiers: Back pain location: low back pain Chronicity: acute Back pain laterality : bilateral Sciatica presence: with sciatica Sciatica laterality: sciatica of right side Qualified Code(s): M54.41 - Lumbago with sciatica, right side Problem List Initiated/Reviewed/Updated: Yes Orders Last 24hrs: Medication Orders Sodium Chloride (Saline Flush) 10 ml FLUSH ASDIRECTED PRN PRN Reason: Keep Vein Open Last Admin: 12/30/17 17:41 Dose: 10 ml Assessment/Plan Comment:: Impression: History of compression fractures (lumbar) with acute back pain. ED visit for back pain 10/2017 with subsequent kyphoplasty Unresponsive to analgesics in the ED. CKD stage III Electrolyte abnormalities Chronic A Fib HLD HTN IBS Hypothyroidism Plan: IVF IV NSAIDS Analgesics narcotic/nonnarcotic Ortho surg consult with Dr Trevino Daily Labs Home meds DVT/GI prophylaxis
[2017-12-30] MEDS ORDERED: Cyclobenzaprine 5 MG Tab PO PRN (20:18)
[2017-12-30] MEDS ORDERED: CALCIUM CARBONATE PO PRN (20:18)
[2017-12-30] MEDS ORDERED: HYDROmorphone 1 MG/ML Syringe IVPUSH PRN (20:20)
[2017-12-30] MEDS ORDERED: Acetaminophen/HYDROcodone 325-5 MG Tab PO PRN (20:21)
[2017-12-31] MEDS: Ketorolac 15 MG/ML SDV IVPUSH PRN ×3 (02:06→18:09)
--- NOTE | 2017-12-31 06:40 | CR ---
Lumbar spine: AP and lateral views of the lumbar spine were obtained. Comparison: Prior lumbar spine study of 11/29/17. Numerous compression deformities noted throughout the lower thoracic and lumbar spine. Previous vertebroplasty is noted at T12 which is an interval change from previous exam. Scoliosis is seen. Osteoporosis is noted. Nothing acute is appreciated from prior lumbar spine study. Impression: 1. Numerous compression deformities as well as scoliosis. Findings are fairly similar to previous exam. 2. Interval kyphoplasty is noted within the T12 vertebral body. 3. Nothing acute is appreciated. Diagnostic code #3
[2017-12-31] MEDS: Fish Oil/Omega-3 Fatty Acids 1 Gm Cap PO SCH (10:25)
[2017-12-31] MEDS: FLECAINIDE 50 MG PO SCH ×3 (10:25→22:23)
[2017-12-31] MEDS: HYPROMELLOSE EYEBOTH SCH (10:26)
[2017-12-31] MEDS: Metoprolol Succinate 25 MG Tab.ER PO SCH (10:26)
[2017-12-31] MEDS: Cholecalciferol (Vitamin D3) 1,000 Unit Tab PO SCH (10:27)
[2017-12-31] MEDS ORDERED: Pneumococcal Polyvalent-23 Vaccine 0.5 ML SDV IM ONE (11:00)
[2017-12-31] MEDS: Enoxaparin 30 MG/0.3 ML Syringe SUBCUT SCH (11:20)
[2017-12-31] MEDS: Potassium Chloride 20 MEQ Tab.ER PO SCH ×2 (11:20→22:22)
[2017-12-31] MEDS ORDERED: Sodium Chloride 0.45% 1,000 ML IV SCH (13:15)
--- NOTE | 2017-12-31 14:57 | PCM.PN ---
- General Info Date of Service: 12/31/17 Admission Dx/Problem (Free Text): Intractable back pain Subjective Update: In to see Nanci. She is resting in bed. She reports her pain is controlled when lying in bed but is aggravated by movement. She rates her pain at 5/10 currently. She is due for some pain medications. Dr. Trevino is consulted and nursing reports he has requested a lumbar spine MRI and will see the patient tomorrow. She denies any concerns. Labs are ordered for tomorrow. Functional Status: Reports: Pain Controlled, Tolerating Diet, Ambulating, Urinating. Denies: New Symptoms - Review of Systems General: Reports: No Symptoms. Denies: Fever, Weakness, Fatigue, Malaise HEENT: Reports: No Symptoms. Denies: Ear Pain, Eye Pain, Sinus Congestion, Sore Throat, Rhinitis Pulmonary: Reports: No Symptoms. Denies: Shortness of Breath, Pleuritic Chest Pain, Cough, Sputum Cardiovascular: Reports: No Symptoms. Denies: Chest Pain, Palpitations, Dyspnea on Exertion, Edema Gastrointestinal: Reports: No Symptoms. Denies: Abdominal Pain, Constipation, Diarrhea, Nausea, Vomiting Genitourinary: Reports: No Symptoms Musculoskeletal: Reports: Back Pain (5/10). Denies: Neck Pain, Shoulder Pain, Arm Pain, Leg Pain, Joint Pain Skin: Reports: No Symptoms Neurological: Reports: No Symptoms Psychiatric: Reports: No Symptoms - Patient Data Vitals - Most Recent: Last Vital Signs Temp 97.9 F 12/31/17 12:46 Pulse 75 12/31/17 12:46 Resp 17 12/31/17 12:46 BP 99/69 12/31/17 12:46 Pulse Ox 94 L 12/31/17 12:46 Weight - Most Recent: 111 lb I&O - Last 24 Hours: Intake & Output 12/30/17 12/31/17 12/31/17 22:59 06:59 14:59 Intake Total 100 180 Output Total 200 Balance 100 -20 Med Orders - Current: Current Medications Hydrocodone Bitart/Acetaminophen ([place] 325-5 Mg) 1 tab PO Q6H PRN PRN Reason: Pain Cholecalciferol (Vitamin D3) 1,000 units PO DAILY [facility] Last Admin: 12/31/17 10:27 Dose: 1,000 units Cyclobenzaprine HCl (Flexeril) 2.5 - 5 mg PO Q8H PRN PRN Reason: Muscle Spasm Enoxaparin Sodium (Lovenox) 30 mg SUBCUT DAILY [facility] Last Admin: 12/31/17 11:20 Dose: 30 mg Fish Oil (Fish Oil) 1 gm PO DAILY [facility] Last Admin: 12/31/17 10:25 Dose: 1 gm Flecainide Acetate (Tambocor) 50 mg PO BID [facility] Last Admin: 12/31/17 10:28 Dose: Not Given Hydromorphone HCl (Dilaudid) 1 mg IVPUSH Q4H PRN PRN Reason: Pain Sodium Chloride (Sodium Chloride 0.45%) 1,000 mls @ 50 mls/hr IV ASDIRECTED [facility] Stop: 01/01/18 01:15 Last Admin: 12/31/17 13:41 Dose: 50 mls/hr Ketorolac Tromethamine (Toradol) 15 mg IVPUSH Q8H PRN PRN Reason: Pain Last Admin: 12/31/17 10:10 Dose: 15 mg Metoprolol Succinate (Toprol Xl) 25 mg PO DAILY [facility] Last Admin: 12/31/17 10:26 Dose: 25 mg Calcium Carbonate 1 (Tab) 0 tab PO Q4H PRN PRN Reason: HEARTBURN Hypromellose [ (Genteal Mild] 1 Drop) 0 each EYEBOTH DAILY [facility] Last Admin: 12/31/17 10:26 Dose: Not Given [place] Thyroid 30 Mg 0 each PO DAILY [facility] Last Admin: 12/31/17 10:26 Dose: Not Given Potassium Chloride (Klor-Con M20) 40 meq PO BID [facility] Stop: 01/01/18 23:00 Last Admin: 12/31/17 11:20 Dose: 40 meq Sodium Chloride (Saline Flush) 10 ml FLUSH ASDIRECTED PRN PRN Reason: Keep Vein Open Last Admin: 12/30/17 17:41 Dose: 10 ml Tramadol HCl (Ultram) 50 mg PO TID PRN PRN Reason: Pain Discontinued Medications Acetaminophen (Tylenol) 650 mg PO NOW ONE Stop: 12/30/17 17:33 Last Admin: 12/30/17 17:41 Dose: 650 mg Hydromorphone HCl (Dilaudid) 0.25 mg IVPUSH ONETIME ONE Stop: 12/30/17 17:14 Last Admin: 12/30/17 17:42 Dose: Not Given Hydromorphone HCl (Dilaudid) Confirm Administered Dose 0.5 mg .ROUTE .STK-MED ONE Stop: 12/30/17 17:27 Last Admin: 12/30/17 17:43 Dose: 0.25 mg Lorazepam (Ativan) 0.25 mg PO ONETIME ONE Stop: 12/30/17 17:34 Last Admin: 12/30/17 17:41 Dose: 0.25 mg Ondansetron HCl (Zofran) 4 mg IVPUSH ONETIME ONE Stop: 12/30/17 17:17 Last Admin: 12/30/17 17:43 Dose: 4 mg Pneumococcal Polyvalent Vaccine (Pneumovax 23) 0.5 ml IM .ONCE ONE Stop: 12/31/17 11:01 - Exam Quality Assessment: DVT Prophylaxis General: Alert, Oriented, Cooperative, Mild Distress (with movement ) HEENT: Pupils Equal, Pupils Reactive, EOMI, Mucous Membr. Moist/[place] Neck: Supple, Trachea Midline, No JVD Lungs: Clear to Auscultation, Normal Respiratory Effort Cardiovascular: Regular Rate, Regular Rhythm GI/Abdominal Exam: Normal Bowel Sounds, Soft, Non-Tender, No Organomegaly, No Distention, No Abnormal Bruit, No Mass, Pelvis Stable (Female) Exam: Deferred Back Exam: Decreased Range of Motion, Other (severe pain with movement ) Extremities: Normal Inspection, Normal Range of Motion, Non-Tender, Normal Capillary Refill, Pedal Edema (trace ) Peripheral Pulses: 1+: Radial (L), Radial (R), Posterior Tibial (L), Posterior Tibial (R), Dorsalis Pedis (L), Dorsalis Pedis (R) Skin: Warm, Dry, Intact Neurological: No New Focal Deficit Psy/Mental Status: Alert, Normal Affect, Normal Mood - Problem List & Annotations (1) Compression fracture SNOMED Code(s): 337795515 Code(s): EHQ2127 - Status: Acute Priority: High Current Visit: Yes (2) Hyperlipidemia SNOMED Code(s): 59554587 Code(s): E78.5 - HYPERLIPIDEMIA, UNSPECIFIED Status: Chronic Priority: Low Current Visit: Yes Qualifiers: Hyperlipidemia type: unspecified Qualified Code(s): E78.5 - Hyperlipidemia , unspecified (3) Hypertension SNOMED Code(s): 24419856 Code(s): I10 - ESSENTIAL (PRIMARY) HYPERTENSION Status: Chronic Priority : Low Current Visit: No (4) Hypothyroid SNOMED Code(s): 44896319 Code(s): E03.9 - HYPOTHYROIDISM, UNSPECIFIED Status: Chronic Priority: Low Current Visit: No Qualifiers: Hypothyroidism type: unspecified Qualified Code(s): E03.9 - Hypothyroidism , unspecified (5) Irritable bowel syndrome (IBS) SNOMED Code(s): 69606115 Code(s): K58.9 - IRRITABLE BOWEL SYNDROME WITHOUT DIARRHEA Status: Chronic Priority: Low Current Visit: No Qualifiers: Irritable bowel syndrome type: unspecified Qualified Code(s): K58.9 - Irritable bowel syndrome without diarrhea (6) Back pain SNOMED Code(s): 842803246 Code(s): M54.9 - DORSALGIA, UNSPECIFIED Status: Acute Priority: High Current Visit: Yes Qualifiers: Back pain location: low back pain Chronicity: acute Back pain laterality : bilateral Sciatica presence: with sciatica Sciatica laterality: sciatica of right side Qualified Code(s): M54.41 - Lumbago with sciatica, right side (7) Hypokalemia SNOMED Code(s): 01879736 Code(s): E87.6 - HYPOKALEMIA Status: Acute Priority: High Current Visit : Yes - Problem List Review Problem List Initiated/Reviewed/Updated: Yes - Plan Plan:: Impression: History of compression fractures (lumbar) with acute back pain. ED visit for back pain 10/2017 with subsequent kyphoplasty Unresponsive to analgesics in the ED. CKD stage III Electrolyte abnormalities - supplement Chronic: A Fib HLD HTN IBS Hypothyroidism Plan: IVF IV NSAIDS Analgesics narcotic/nonnarcotic Ortho surg consult with Dr Trevino - MRI tomorrow AM Daily Labs Home meds DVT/GI prophylaxis Code status:Full code; PCP: Aisha stephenson [place]
[2017-12-31] MEDS: traMADol 50 MG Tab PO PRN (18:09)
[2017-12-31] MEDS ORDERED: Polyethylene Glycol 3350 Powder 17 GM Packet PO PRN (18:27)
[2017-12-31] MEDS ORDERED: Ondansetron 4 MG/2 ML SDV IV PRN (18:27)
[2017-12-31] MEDS ORDERED: Bisacodyl 5 MG Tab PO PRN (18:27)
[2017-12-31] MEDS ORDERED: Ondansetron 4 MG Tab.DIS PO PRN (18:27)
[2017-12-31] MEDS ORDERED: Docusate Sodium 100 MG Cap PO PRN (18:27)
[2018-01-01] MEDS: Ketorolac 15 MG/ML SDV IVPUSH PRN (02:00)
[2018-01-01] MEDS: traMADol 50 MG Tab PO PRN ×2 (04:31→11:44)
[2018-01-01] MEDS ORDERED: CALCIUM CARBONATE PO PRN (08:14)
[2018-01-01] MEDS ORDERED: Celecoxib 100 MG Cap PO SCH (09:00)
[2018-01-01] MEDS: FLECAINIDE 50 MG PO SCH (09:58)
[2018-01-01] MEDS: Cholecalciferol (Vitamin D3) 1,000 Unit Tab PO SCH (09:58)
[2018-01-01] MEDS: HYPROMELLOSE EYEBOTH SCH (09:58)
[2018-01-01] MEDS: Enoxaparin 30 MG/0.3 ML Syringe SUBCUT SCH (09:58)
[2018-01-01] MEDS: Metoprolol Succinate 25 MG Tab.ER PO SCH (09:58)
[2018-01-01] MEDS: Fish Oil/Omega-3 Fatty Acids 1 Gm Cap PO SCH (09:58)
--- NOTE | 2018-01-01 11:58 | MR ---
MRI lumbar spine Technique: T1-weighted axial images were obtained from the bottom of T10 inferiorly through the L5-S1 disc. T2-weighted axial images were obtained from the mid T12 level inferiorly through the L5-S1 disc. T1, T2 and fat-suppressed inversion recovery sagittal images were obtained. Comparison: Previous MRI lumbar spine study of 11/06/17. Findings: T10-T11: Posterior disc is preserved. No discrete neural foraminal stenosis is noted. No central canal stenosis is seen. T11-T12: Mild to moderate compression deformity within superior endplate of T11 is seen. This is more prominent than on prior study and shows diffuse bone marrow edema. Posterior disc is preserved. No central canal stenosis or discrete neural foraminal stenosis is seen. T12-L1: Severe compression deformity of T12 is seen with low signal compatible with vertebroplasty cement. There is posterior retrolisthesis of the vertebral line at T12 by about 6 mm. Findings are stable from prior study causing minimal central canal stenosis. Neural foramina appear to be patent where the nerve roots exit. L1-L2: Superior compression deformity of L1 is seen. This is an interval change from previous exam and shows bone marrow edema. Posterior disc is preserved. No central canal stenosis is seen. Neural foramina are patent where the nerve roots exit. L2-L3: Compression deformity of L2 is seen. This is stable from previous exam. Mild retrolisthesis of the posterior vertebral line is seen which is stable. Minimal circumferential disc bulge is noted. No central canal stenosis is seen. Mild degenerative apophyseal change is noted. Neural foramina are patent where the nerve roots exit. L3-L4: Severe compression deformity of L3 is seen which is stable. Minimal circumferential disc bulge is seen. Posterior disc maintains a minimally concave margin. Neural foramina are patent where the nerve roots exit. No central canal stenosis is seen. Mild degenerative apophyseal change is noted. L4-L5: Slight circumferential disc bulge is seen. Posterior disc maintains a planar margin. Mild posterior spurring is noted off the superior L5 vertebral margin. Degenerative apophyseal change is noted. No central canal stenosis is seen. Neural foramina are patent where the nerve roots exit. L5-S1: Compression deformity of L5 is seen which is stable from prior exam. Posterior disc is preserved. Severe degenerative apophyseal change is noted. No central canal stenosis is seen. Neural foramina are patent where the nerve roots exit. Conus medullaris and cauda equina show no abnormal signal or mass. Impression: 1. Moderate compression deformity of L1 which is an interval change from prior study showing bone marrow edema. 2. Mild increasing compression deformity of superior endplate of T11 from prior study showing mild bone marrow edema. 3. Other compression deformities are stable. 4. Degenerative change as noted above. Diagnostic code #3
[2018-01-01] MEDS ORDERED: Pneumococcal 13-Valent Conjugate Vaccine 0.5 ML Syringe IM ONE (12:09)
--- NOTE | 2018-01-01 14:23 | NM ---
Bone scan Technique: 20.8 mCi of technetium 99m MDP was given intravenously. Whole body scintigraphic images were obtained. Findings: Increased activity is seen in a linear orientation within approximately T11 and T12. Lesser linear activity is seen within the superior body of approximately L3 and L2. Findings are compatible with change from compression deformities. Scoliosis is noted. Mild activity within both wrists are seen compatible with degenerative change. Small area of activity is seen within the lower right ribs at the costochondral junction most likely due to old trauma. No other bone scan abnormality is seen. Impression: 1. Linear activity compatible with compression deformities within approximately T11 and T12 and and approximately the superior vertebral bodies of L2 and L3. 2. Scoliosis and slight degenerative signal change within both wrists. 3. Increased activity most likely from old trauma within the costochondral junction within the right lower chest. Diagnostic code #3
--- NOTE | 2018-01-01 14:57 | PCM.DCSUM1 ---
Discharge Summary - Hospital Course HPI Initial Comments: 87 year old female with history of chronic back pain, presents with acute back without response to analgesics in the ED. She has had a kyphoplasty involving T12 since her last ED visit in October 2017. She has had lower back pain for 3 -4 days without relief from OTC NSAIDS. The pain occurs with movement, and is described as a sharp pain into her buttocks. She denies recent trauma or heavy lifting. There has been no fever/chills, or changed in GI/ habits. The patient will be admitted to [facility] with telemetry. - Discharge Data Discharge Date: 01/01/18 (Admit Date: 12/30/17) Discharge Disposition: Home, Self-Care 01 Condition: Fair - Discharge Diagnosis/Problem(s) (1) Compression fracture SNOMED Code(s): 314882510 ICD Code: [id number] - Status: Acute Priority: High Current Visit: Yes (2) Hyperlipidemia SNOMED Code(s): 67626575 ICD Code: E78.5 - HYPERLIPIDEMIA, UNSPECIFIED Status: Chronic Priority: Low Current Visit: Yes Qualifiers: Hyperlipidemia type: unspecified Qualified Code(s): E78.5 - Hyperlipidemia , unspecified (3) Hypertension SNOMED Code(s): 75846198 ICD Code: I10 - ESSENTIAL (PRIMARY) HYPERTENSION Status: Chronic Priority : Low Current Visit: No (4) Hypothyroid SNOMED Code(s): 88119692 ICD Code: E03.9 - HYPOTHYROIDISM, UNSPECIFIED Status: Chronic Priority: Low Current Visit: No Qualifiers: Hypothyroidism type: unspecified Qualified Code(s): E03.9 - Hypothyroidism , unspecified (5) Irritable bowel syndrome (IBS) SNOMED Code(s): 16529238 ICD Code: K58.9 - IRRITABLE BOWEL SYNDROME WITHOUT DIARRHEA Status: Chronic Priority: Low Current Visit: No Qualifiers: Irritable bowel syndrome type: unspecified Qualified Code(s): K58.9 - Irritable bowel syndrome without diarrhea (6) Back pain SNOMED Code(s): 591697332 ICD Code: M54.9 - DORSALGIA, UNSPECIFIED Status: Acute Priority: High Current Visit: Yes Qualifiers: Back pain location: low back pain Chronicity: acute Back pain laterality : bilateral Sciatica presence: with sciatica Sciatica laterality: sciatica of right side Qualified Code(s): M54.41 - Lumbago with sciatica, right side (7) Hypokalemia SNOMED Code(s): 21910536 ICD Code: E87.6 - HYPOKALEMIA Status: Resolved Priority: High Current Visit: Yes - Patient Summary/Data Consults: Consultations 12/31/17 11:29 Consult to Occupational Therapy [OT Evaluation and Treatment] [CONS] Routine Consult to Physical Therapy [PT Evaluation and Treatment] [CONS] Routine 12/31/17 11:30 Consult to Physician [CONS] Routine Labs Pending at D/C: None Recommended Follow-up Testing/Procedures: Follow-up with PCP in 7-[address] Trevino would like to see the patient one week after discharge. Nursing will attempt to schedule. Hospital Course: Impression: History of compression fractures (lumbar) with acute back pain. ED visit for back pain 10/2017 with subsequent kyphoplasty Unresponsive to analgesics in the ED. CKD stage III Electrolyte abnormalities - supplement Chronic: A Fib HLD HTN IBS Hypothyroidism Plan: IVF IV NSAIDS Analgesics narcotic/nonnarcotic Ortho surg consult with Dr Trevino - MRI tomorrow AM Daily Labs Home meds DVT/GI prophylaxis Code status:Full code; [facility] and full body bone scan today. New compression fractures were noted above and below her recent kyphoplasty location. Dr. Anguiano was in to see the patient. She was started on Celebrex 100 mg twice a day. Her pain here has been worsened by movement, however she is refusing most pain meds. She does have Ultram and Flexeril at home which she should continue to utilize. Home health physical therapy has been ordered. Dr. Anguiano would like to see the patient within 7 days. Consult radiology report for bone scan and MRI for full report. She will be discharged home today. She has a ride lined up tonight. She should see her primary care provider within 7-10 days after discharge. - Patient Instructions Diet: Heart Healthy Diet Activity: As Tolerated Driving: Do Not Drive Notify Provider of: Fever, Increased Pain, Nausea and/or Vomiting - Discharge Plan Prescriptions/Med Rec: Celecoxib [CeleBREX] 100 mg PO BID #40 cap Home Medications: Home Meds Cyclobenzaprine [Flexeril] 5 mg PO ASDIRECTED PRN 11/02/17 [History] Flecainide Acetate 50 mg PO BID 11/02/17 [History] Metoprolol Succinate [Toprol XL] 25 mg PO DAILY 11/02/17 [History] traMADol [Ultram] 50 mg PO TID PRN #30 tablet 11/02/17 [Rx] Cholecalciferol (Vitamin D3) [Vitamin D3] 1,000 unit PO DAILY 12/04/17 [History] [place]-3S/DHA/Epa/Fish Oil [[place]-3 Fish Oil 1,000 mg Sfgl] 1 cap PO DAILY [History] Thyroid [[place] Thyroid] 30 mg PO DAILY 12/04/17 [History] Calcium Carbonate [Tums Extra Strength] 1 tab PO ASDIRECTED PRN 12/30/17 [ History] Hypromellose [Genteal Mild] 1 drop EYEBOTH DAILY 12/30/17 [History] Celecoxib [CeleBREX] 100 mg PO BID #40 cap 01/01/18 [Rx] Referrals: Aisha Lorenzo NP [Primary Care Provider] - - Discharge Summary/Plan Comment DC Time >30 min.: Yes (40 minutes ) - General Info Date of Service: 01/01/18 Admission Dx/Problem (Free Text: Intractable back pain Subjective Update: In to see Nanci today. She reports her back pain is 8 out of 10 however she was just moving around and recently returned from bone scan and MRI. She reports she did have some difficulty lying on the table for her scans and is increased her back pain. She does have a noted compression fracture above and below the site of her previous kyphoplasty. Dr. Anguiano was in to see the patient and would like to see her within 7 days. I discussed results of the scans with the patient. She voiced understanding. She was started on Celebrex today. She reports she has been on this in the past but stopped due to some stomach issues. She has been taking ibuprofen regularly. We'll stop that for now. She has home tramadol and Flexeril and she was encouraged to utilize this. I also encouraged her to stay on top of her pain with pain medications until she can meet with Dr. Trevino. She reports she tries to avoid medications if at all possible and we had a lengthy discussion about quality of like and pain with movement. She was happy to have answers and a plan in place. Functional Status: Reports: Pain Controlled (06/27 but refusing pain meds, reports she was just up and that made pain worse. ), Tolerating Diet, Ambulating , Urinating, New Symptoms - Review of Systems General: Reports: No Symptoms HEENT: Reports: No Symptoms Pulmonary: Reports: No Symptoms Cardiovascular: Reports: No Symptoms Genitourinary: Reports: No Symptoms Musculoskeletal: Reports: Back Pain (lower back - no radiation ) Skin: Reports: No Symptoms Neurological: Reports: No Symptoms Psychiatric: Reports: No Symptoms - Patient Data Vitals - Most Recent: Last Vital Signs Temp 97.9 F 01/01/18 10:00 Pulse 69 01/01/18 10:00 Resp 16 01/01/18 10:00 BP 117/75 01/01/18 10:00 Pulse Ox 93 L 01/01/18 10:00 Weight - Most Recent: 103 lb 11.2 oz I&O - Last 24 hours: Intake & Output 12/31/17 01/01/18 01/01/18 22:59 06:59 14:59 Intake Total 820 480 Output Total 900 Balance 820 -420 Lab Results - Last 24 hrs: Laboratory Results - last 24 hr 01/01/18 01/01/18 Range/Units 04:59 04:59 WBC 4.95 (3.98-10.04) K/mm3 RBC 3.39 L (3.98-5.22) M/mm3 Hgb 10.3 L (11.2-15.7) gm/L Hct 31.8 L (34.1-44.9) % MCV 93.8 (79.4-94.8) fl MCH 30.4 (25.6-32.2) pg MCHC 32.4 (32.2-35.5) g/dl RDW Std Deviation 46.6 H (36.4-46.3) fL Plt Count 189 (182-369) K/mm3 MPV 10.6 (9.4-12.3) fl Neut % (Auto) 51.3 (34.0-71.1) % Lymph % (Auto) 27.1 (19.3-51.7) % [place] % (Auto) 13.3 H (4.7-12.5) % Eos % (Auto) 7.5 H (0.7-5.8) Baso % (Auto) 0.6 (0.1-1.2) % Neut # (Auto) 2.54 (1.56-6.13) K/mm3 Lymph # (Auto) 1.34 (1.18-3.74) K/mm3 [place] # (Auto) 0.66 H (0.24-0.36) K/mm3 Eos # (Auto) 0.37 H (0.04-0.36) K/mm3 Baso # (Auto) 0.03 (0.01-0.08) K/mm3 Sodium 138 (136-145) mEq/L Potassium 5.0 (3.5-5.1) mEq/L Chloride 107 (98-107) mEq/L Carbon Dioxide 23 (21-32) mEq/L Anion Gap 13.0 (5-15) BUN 14 (7-18) mg/dL Creatinine 0.9 (0.55-1.02) mg/dL Est Cr Clr Drug Dosing 33.32 mL/min Estimated GFR (MDRD) 59 (>60) mL/min BUN/Creatinine Ratio 15.6 (14-18) Glucose 84 (83-115) mg/dL Calcium 8.4 L (8.5-10.1) mg/dL Magnesium 1.9 (1.8-2.4) mg/dl Med Orders - Current: Current Medications Hydrocodone Bitart/Acetaminophen ([place] 325-5 Mg) 1 tab PO Q6H PRN PRN Reason: Pain Bisacodyl (Dulcolax) 5 mg PO DAILY PRN PRN Reason: Constipation Celecoxib (Celebrex) 100 mg PO BID [facility] Last Admin: 01/01/18 09:57 Dose: 100 mg Cholecalciferol (Vitamin D3) 1,000 units PO DAILY [facility] Last Admin: 01/01/18 09:58 Dose: 1,000 units Cyclobenzaprine HCl (Flexeril) 2.5 - 5 mg PO Q8H PRN PRN Reason: Muscle Spasm Docusate Sodium (Colace) 100 mg PO BID PRN PRN Reason: Constipation Enoxaparin Sodium (Lovenox) 30 mg SUBCUT DAILY [facility] Last Admin: 01/01/18 09:58 Dose: 30 mg Fish Oil (Fish Oil) 1 gm PO DAILY [facility] Last Admin: 01/01/18 09:58 Dose: 1 gm Flecainide Acetate (Tambocor) 50 mg PO BID [facility] Last Admin: 01/01/18 09:58 Dose: 50 mg Hydromorphone HCl (Dilaudid) 1 mg IVPUSH Q4H PRN PRN Reason: Pain Metoprolol Succinate (Toprol Xl) 25 mg PO DAILY [facility] Last Admin: 01/01/18 09:58 Dose: 25 mg Ondansetron HCl (Zofran Odt) 4 mg PO Q6H PRN PRN Reason: nausea, able to take PO Ondansetron HCl (Zofran) 4 mg IV Q6H PRN PRN Reason: Nausea/Vomiting Hypromellose [ (Genteal Mild] 1 Drop) 0 each EYEBOTH DAILY [facility] Last Admin: 01/01/18 09:58 Dose: 2 each [place] Thyroid 30 Mg 0 each PO DAILY [facility] Last Admin: 01/01/18 09:58 Dose: Not Given Calcium Carbonate 1 (Tab) 0 each PO Q4H PRN PRN Reason: HEARTBURN Polyethylene Glycol (Miralax) 17 gm PO DAILY PRN PRN Reason: Constipation Senna/Docusate Sodium ([place] Plus) 1 tab PO BID PRN PRN Reason: Constipation Sodium Chloride (Saline Flush) 10 ml FLUSH ASDIRECTED PRN PRN Reason: Keep Vein Open Last Admin: 12/30/17 17:41 Dose: 10 ml Tramadol HCl (Ultram) 50 mg PO TID PRN PRN Reason: Pain Last Admin: 01/01/18 11:44 Dose: 50 mg Discontinued Medications Acetaminophen (Tylenol) 650 mg PO NOW ONE Stop: 12/30/17 17:33 Last Admin: 12/30/17 17:41 Dose: 650 mg Hydromorphone HCl (Dilaudid) 0.25 mg IVPUSH ONETIME ONE Stop: 12/30/17 17:14 Last Admin: 12/30/17 17:42 Dose: Not Given Hydromorphone HCl (Dilaudid) Confirm Administered Dose 0.5 mg .ROUTE .STK-MED ONE Stop: 12/30/17 17:27 Last Admin: 12/30/17 17:43 Dose: 0.25 mg Sodium Chloride (Sodium Chloride 0.45%) 1,000 mls @ 50 mls/hr IV ASDIRECTED [facility] Stop: 01/01/18 01:15 Last Admin: 12/31/17 13:41 Dose: 50 mls/hr Ketorolac Tromethamine (Toradol) 15 mg IVPUSH Q8H PRN PRN Reason: Pain Last Admin: 01/01/18 02:00 Dose: 15 mg Lorazepam (Ativan) 0.25 mg PO ONETIME ONE Stop: 12/30/17 17:34 Last Admin: 12/30/17 17:41 Dose: 0.25 mg Calcium Carbonate 1 (Tab) 0 tab PO Q4H PRN PRN Reason: HEARTBURN Ondansetron HCl (Zofran) 4 mg IVPUSH ONETIME ONE Stop: 12/30/17 17:17 Last Admin: 12/30/17 17:43 Dose: 4 mg Pneumococcal 13-Valent Conj Vacc (Prevnar 13) 0.5 ml IM .ONCE ONE Stop: 01/01/18 12:10 Last Admin: 01/01/18 13:29 Dose: Not Given Pneumococcal Polyvalent Vaccine (Pneumovax 23) 0.5 ml IM .ONCE ONE Stop: 12/31/17 11:01 Last Admin: 01/01/18 13:29 Dose: Not Given Potassium Chloride (Klor-Con M20) 40 meq PO BID [facility] Stop: 01/01/18 23:00 Last Admin: 12/31/17 22:22 Dose: 40 meq - Exam Quality Assessment: Reports: DVT Prophylaxis General: Reports: Alert, Oriented, Cooperative, No Acute Distress HEENT: Reports: Pupils Equal, Pupils Reactive, EOMI, Mucous Membr. Moist/[place] Neck: Reports: Supple, Trachea Midline, No JVD Lungs: Reports: Clear to Auscultation, Normal Respiratory Effort Cardiovascular: Reports: Regular Rate, Regular Rhythm GI/Abdominal Exam: Normal Bowel Sounds, Soft, Non-Tender, No Organomegaly, No Distention, No Abnormal Bruit, No Mass, Pelvis Stable (Female) Exam: Deferred Rectal (Female) Exam: Deferred Back Exam: Reports: Decreased Range of Motion, Paraspinal Tenderness (lower back ), Vertebral Tenderness (lower back ), Other (Increased pain with movement ) Extremities: Normal Inspection, Normal Range of Motion, Non-Tender, No Pedal Edema, Normal Capillary Refill Skin: Reports: Warm, Dry, Intact Neurological: Reports: No New Focal Deficit Psy/Mental Status: Reports: Alert, Normal Affect, Normal Mood *Q Meaningful Use (DIS) - VTE *Q VTE Criteria *Q: - Stroke *Q Stroke Criteria *Q: - AMI *Q AMI Criteria *Q:
--- NOTE | 2018-01-02 08:40 | CONS ---
CONSULTING PHYSICIAN: Wero Trevino MD DATE OF CONSULTATION: 01/01/2018 REPORT TITLE: Orthopedic Consultation HISTORY OF PRESENT ILLNESS: This patient is being seen on consult in the hospital for onset of increasing pain in her lower lumbar spine. The patient notes no specific injury to the low back area. She has had a history of previous low back problems and also a compression fracture that was treated by kyphoplasty approximately 1 month ago. The patient notes that she was last seen through the orthopedic office and was doing fine until over the last 2 weeks, she has had positive increasing pain in the low back with movement. It seems the patient has had no injury, but notes the pain is in the low back, extending into her buttocks. The pain is increased when she rises from a lying down or sitting position to standing position. She can walk. She notes no increased pain in her low back area. She also notes that when she is at rest lying flat, she notes no pain. There is some increasing pain with prolonged sitting, but the major problem is the activity of getting up and getting down at this point. The patient notes no numbness, tingling, or radiation of pain down into her lower extremities at this point. She notes no fever, chills, or nighttime sweats. Currently, the patient states that she has been working with Flexeril and also Tylenol for pain control and occasional Advil for inflammation control. ALLERGIES: Clindamycin, paroxetine, penicillins, aspirin, and Novocain. MEDICATIONS: The patient's current home medications include Flexeril, flecainide acetate 50 mg, Toprol, Tramadol, vitamin D3, multiple vitamins, thyroid, and also ibuprofen. REVIEW OF SYSTEMS: HEAD, EYES, EARS, NOSE, AND THROAT: She notes positive impaired vision. CARDIOVASCULAR: She has a history of atrial fibrillation, high cholesterol, hypertension, and also tachycardia. RESPIRATORY: Notes no pneumonia or asthma history onset. GASTROINTESTINAL: She does have irritable bowel syndrome. GENITOURINARY: The patient notes no fever, chills, or any type of burning-type sensation on urinating. PAST SURGICAL HISTORY: The patient has had previous surgeries with cataract surgery in the past. Also, she has had salivary stone extraction and varicose veins. She notes that she has had previous breast lumpectomies, lymph node resections, hysterectomy, oophorectomy, and also a kyphoplasty fracture stabilization on 12/05/2017. PHYSICAL EXAMINATION: GENERAL: On examination today, the patient is a thin, very tired-looking female, but alert to questions and answers. HEAD, EYES, EARS, NOSE, AND THROAT: Normocephalic. NECK: Supple. CHEST: Clear. CARDIOVASCULAR: No cardiovascular changes. Regular rate and rhythm are noted. ABDOMEN: Soft. GENITOURINARY: Intact. BACK: The patient has positive pain in the lower lumbar spine area with palpation and pressure. The patient also has previous healed surgical kyphoplasty area which, on evaluation with palpation and percussion, was negative for pain. LABORATORY DATA: The patient's radiology evaluation: Her x-rays are reviewed and show positive kyphoplasty fracture stabilization of T12. There is significant osteoporosis noted in the lower lumbar spine area and also degenerative arthritis in the lower lumbar spine area. OVERALL IMPRESSION: 1. Low back pain with radiation to the buttocks. 2. Status post kyphoplasty fracture stabilization of the T12 vertebral body. 3. Osteoporosis of the spinal column. PLAN: The patient will be placed on a rest program. I feel we will need to re- evaluate for the possibility of a new compression fracture having developed in the lumbar spine area. The patient had a previous MRI that had shown severe spinal stenosis of the L3, L4, and L5 levels. Also, with the continued pain in and around the pelvis region extending out to the buttocks, we will order a nuclear medicine bone scan to evaluate the sacroiliac joints and also the pelvic girdle region to make sure there are no stress fracture-type problems at those levels. MMODAL /[id number]
== END 2018-01-01 19:39 | disposition home or self-care (01) ==
LOC: JD.ED 16:43 → JD.MS 19:11
PROVIDERS: ADMIT Internal Medicine Cardiovascular Disease; ATTEND Internal Medicine Cardiovascular Disease
DX: M48.56XA Collapsed vertebra, not elsewhere classified, lumbar region, initial encounter for fracture (principal); G89.29 Other chronic pain; E78.5 Hyperlipidemia, unspecified; E03.9 Hypothyroidism, unspecified; M54.41 Lumbago with sciatica, right side; K58.9 Irritable bowel syndrome, unspecified; E87.6 Hypokalemia; N18.3 Chronic kidney disease, stage 3 (moderate); I12.9 Hypertensive chronic kidney disease with stage 1 through stage 4 chronic kidney disease, or unspecified chronic kidney disease; I48.91 Unspecified atrial fibrillation; F41.9 Anxiety disorder, unspecified; Z90.710 Acquired absence of both cervix and uterus; Z79.899 Other long term (current) drug therapy; Z98.890 Other specified postprocedural states; Z88.1 Allergy status to other antibiotic agents; Z88.8 Allergy status to other drugs, medicaments and biological substances; Z88.0 Allergy status to penicillin; Z88.6 Allergy status to analgesic agent; Z88.4 Allergy status to anesthetic agent; Z90.722 Acquired absence of ovaries, bilateral
CPT/HCPCS: 36415; 72100; 72148; 78306; 80048; 80053; 83735; 85025; 96361; 96372; 96374; 96375; 96376; 97110; 97116; 97162; 97165; 97530; 99285; A9270; A9503; G0378; J1170; J1650; J1885; J2405; J7030; J7050

== ENCOUNTER 2018-01-14 06:21 | Day surgery (SDC) | payer MEDICARE, BC ==
--- NOTE | 2018-01-10 07:00 | HP ---
DATE OF ADMISSION: 01/04/2018 HISTORY: This is the second orthopedic outpatient admission for surgery for this 87-year- old female who suffered severe increasing pain in her thoracic lumbar spine beginning in 12/28/2017. The pain increased to the point where patient was seen through the emergency room, admitted to the hospital for severe pain and for pain control, underwent MRI evaluation which identified 2 new acute compression fractures at T11 and L1 with L1 showing localized blood formation indicating a soft and unstable vertebral body at L1. With the patient continuing to have severe pain even after discharge, the patient is now being scheduled for an outpatient surgical kyphoplasty fracture stabilization of T11 and L1. The procedures were outlined to her. She understands procedure and has consented to it. ALLERGIES: To penicillin, develops a rash; Paxil and clindamycin. PAST MEDICAL HISTORY: The patient has medical problems with decreased thyroid function. She has a cholesterol problem, atrial fibrillation, occasional high blood pressure, and currently arthritis and osteoporosis. CURRENT MEDICATIONS: Current medications include thyroid, Flexeril, tramadol for pain, Celebrex 100 mg, MiraLAX, metoprolol, and multivitamins including vitamin D and calcium. PAST SURGICAL HISTORY: The patient has a positive surgical history. She has had multiple surgeries. There is no anesthesia problem with a recent kyphoplasty on 12/05/2017 for T12 and had no anesthesia problems. Bleeding history is negative. Blood clot history is negative. SOCIAL HISTORY: She is a nonsmoker and nondrinker. PHYSICAL EXAMINATION: GENERAL: Today, reveals a well-developed, well-nourished 87-year-old female in severe distress. HEAD, EYES, EARS, NOSE, AND THROAT: Normocephalic. NECK: Supple. CHEST: Clear. COR: Shows heart irregularly irregular secondary to the atrial fibrillation. ABDOMEN: Soft. : Intact. SPINE: Examination of the thoracic lumbar spine reveals severe pain to percussion and palpation of the lower thoracic and upper lumbar spine. RADIOGRAPHIC STUDIES: MRI evaluation on 01/01/2018 shows acute compression fractures of T11 and L1. ASSESSMENT: Overall impression is acute osteoporotic compression fractures T11, L1 with intractable pain failed treatment. PLAN: Plan is for the patient undergo a surgical kyphoplasty fracture stabilization. MMODAL /[id number]
[2018-01-14] MEDS ORDERED: Lidocaine 1% with EPINEPHrine 1:100,000 20 ML MDV ONE (06:54)
[2018-01-14] MEDS ORDERED: Iopamidol 612 MG/ML 50 ML SDV ONE (06:54)
[2018-01-14] MEDS ORDERED: Sodium Chloride 0.9% 50 ML SDV ONE (06:54)
[2018-01-14] MEDS ORDERED: Sodium Chloride 0.9% 10 ML Syringe FLUSH PRN (07:00)
[2018-01-14] MEDS ORDERED: Lactated Ringers 1,000 ML IV SCH (07:00)
[2018-01-14] MEDS ORDERED: Lidocaine 1%/Sod Bicarbonate in NS 8.4% 1 ML Syringe IDERM PRN (07:00)
[2018-01-14] MEDS ORDERED: Vancomycin 1 GM SDV ONE (07:08)
--- NOTE | 2018-01-14 07:22 | PCM.PREANE ---
Preanesthetic Assessment - Anesthesia/Transfusion/Family Hx Anesthesia History: Prior Anesthesia Without Reaction Family History of Anesthesia Reaction: No Transfusion History: No Prior Transfusion(s) Intubation History: Unknown - Review of Systems General: No Symptoms Pulmonary: No Symptoms Cardiovascular: No Symptoms Gastrointestinal: No Symptoms Neurological: Difficulty Walking, Weakness, Gait Disturbance, Other (Back Pain with movement) Other: Reports: Thyroid Problems - Physical Assessment NPO Status Date: 01/13/18 NPO Status Time: 20:00 O2 Sat by Pulse Oximetry: 98 Respiratory Rate: 16 Vital Signs: Last Vital Signs Temp 36.4 C 01/14/18 06:35 Pulse 69 01/14/18 06:35 Resp 16 01/14/18 06:35 BP 156/85 H 01/14/18 06:35 Pulse Ox 98 01/14/18 06:35 Height: 1.45 m Weight: 44.906 kg ASA Class: 3 Mental Status: Alert & Oriented x3 Airway Class: Mallampati = 2 Dentition: Reports: Implants Thyro-Mental Finger Breadths: 3 Mouth Opening Finger Breadths: 3 ROM/Head Extension: Full Lungs: Clear to Auscultation, Normal Respiratory Effort Cardiovascular: Irregular Rhythm - Allergies Allergies/Adverse Reactions: Allergies Allergy/AdvReac Type Severity Reaction Status Date / Time paroxetine [From Paxil] Allergy Cannot Verified 12/30/17 16:56 Remember Penicillins Allergy Cannot Verified 12/30/17 16:56 Remember aspirin AdvReac Stomach Verified 12/30/17 16:56 Upset clindamycin AdvReac Weakness Verified 01/01/18 08:13 procaine [From Novocain] AdvReac Tachycardia Verified 12/30/17 16:56 - Acknowledgements Anesthesia Type Planned: MAC Pt an Appropriate Candidate for the Planned Anesthesia: Yes Alternatives and Risks of Anesthesia Discussed w Pt/Guardian: Yes Pt/Guardian Understands and Agrees with Anesthesia Plan: Yes PreAnesthesia Questionnaire HEENT History: Reports: Impaired Vision Cardiovascular History: Reports: Afib, High Cholesterol, Hypertension, Other ( See Below) Other Cardiovascular History: tachycardia Respiratory History: Reports: None Gastrointestinal History: Reports: Irritable Bowel Syndrome [employer] History: Reports: None Musculoskeletal History: Reports: Arthritis, Other (See Below) Other Musculoskeletal History: compression fracture Neurological History: Reports: None Psychiatric History: Reports: Anxiety Endocrine/Metabolic History: Reports: Hypothyroidism Hematologic History: Reports: Anemia Immunologic History: Reports: None Oncologic (Cancer) History: Reports: None Dermatologic History: Reports: None - Past Surgical History Head Surgeries/Procedures: Reports: None HEENT Surgical History: Reports: Cataract Surgery, Other (See Below) Other HEENT Surgeries/Procedures: salivary stone extraction Cardiovascular Surgical History: Reports: Varicose Respiratory Surgical History: Reports: None GI Surgical History: Reports: Appendectomy Female Surgical History: Reports: Breast Biopsy, Hysterectomy, Oophorectomy, Other (See Below) Other Female Surgeries/Procedures: breast lumpectomy, lymph node removed from left arm Endocrine Surgical History: Reports: None, Thyroidectomy Other Endocrine Surgeries/Procedures: Thyriod surgery Neurological Surgical History: Reports: None Other Neurological Surgeries/Procedures: kyphoplasty Musculoskeletal Surgical History: Reports: Other (See Below) Other Musculoskeletal Surgeries/Procedures:: kyphoplasty Oncologic Surgical History: Reports: None Dermatological Surgical History: Reports: None - SUBSTANCE USE Smoking Status *Q: Never Smoker Tobacco Use Within Last Twelve Months: No Second Hand Smoke Exposure: No Recreational Drug Use History: No - HOME MEDS Home Medications: Home Meds Cyclobenzaprine [Flexeril] 5 mg PO ASDIRECTED PRN 11/02/17 [History] Flecainide Acetate 50 mg PO BID 11/02/17 [History] Metoprolol Succinate [Toprol XL] 25 mg PO DAILY 11/02/17 [History] traMADol [Ultram] 50 mg PO TID PRN #30 tablet 11/02/17 [Rx] Cholecalciferol (Vitamin D3) [Vitamin D3] 1,000 unit PO DAILY 12/04/17 [History] [place]-3S/DHA/Epa/Fish Oil [[place]-3 Fish Oil 1,000 mg Sfgl] 1 cap PO DAILY [History] Thyroid [[place] Thyroid] 30 mg PO DAILY 12/04/17 [History] Calcium Carbonate [Tums Extra Strength] 1 tab PO ASDIRECTED PRN 12/30/17 [ History] Hypromellose [Genteal Mild] 1 drop EYEBOTH DAILY 12/30/17 [History] Celecoxib [CeleBREX] 100 mg PO BID #40 cap 01/01/18 [Rx] - CURRENT (IN HOUSE) MEDS Current Meds: Current Medications Lactated Ringer's (Ringers, Lactated) 1,000 mls @ 125 mls/hr IV ASDIRECTED CHLOE Stop: 01/14/18 23:00 Last Admin: 01/14/18 06:45 Dose: 125 mls/hr Lidocaine/Sodium Bicarbonate (Buffered Lidocaine 1% In Ns 8.4%) 0.25 ml IDERM ONETIME PRN PRN Reason: Prior to IV Start Stop: 01/14/18 18:00 Last Admin: 01/14/18 06:45 Dose: 0.25 ml Sodium Chloride (Saline Flush) 10 ml FLUSH ASDIRECTED PRN PRN Reason: Keep Vein Open Stop: 01/14/18 18:00 Discontinued Medications Iopamidol (Isovue-300 (61%)) Confirm Administered Dose 50 ml .ROUTE .STK-MED ONE Stop: 01/14/18 06:55 Lidocaine/Epinephrine (Xylocaine 1% With Epinephrine 1:100,000) Confirm Administered Dose 40 ml .ROUTE .STK-MED ONE Stop: 01/14/18 06:55 Sodium Chloride (Normal Saline) Confirm Administered Dose 50 ml .ROUTE .STK-MED ONE Stop: 01/14/18 06:55
[2018-01-14] MEDS ORDERED: Ondansetron 4 MG/2 ML SDV ONE (07:35)
[2018-01-14] MEDS ORDERED: fentaNYL 250 MCG/5 ML SDV ONE (07:35)
[2018-01-14] MEDS ORDERED: Propofol 200 MG/20 ML SDV ONE (07:35)
[2018-01-14] MEDS ORDERED: Dexamethasone 4 MG/ML SDV ONE (07:35)
[2018-01-14] MEDS ORDERED: Lactated Ringers 1,000 ML ONE (07:35)
[2018-01-14] MEDS ORDERED: ceFAZolin 1 GM Vial ONE (07:35)
[2018-01-14] MEDS ORDERED: Ketamine 500 mg/10 ML MDV ONE (07:35)
[2018-01-14] MEDS ORDERED: traMADol 50 MG Tab PO PRN (07:40)
--- NOTE | 2018-01-14 09:39 | PCM48HPAN ---
Post Anesthesia Note - EVALUATION WITHIN 48HRS OF ANESTHETIC Vital Signs in Normal Range: Yes Patient Participated in Evaluation: Yes Respiratory Function Stable: Yes Airway Patent: Yes Cardiovascular Function Stable: Yes Hydration Status Stable: Yes Pain Control Satisfactory: Yes Nausea and Vomiting Control Satisfactory: Yes Mental Status Recovered: Yes Pulse Rate: 89 SaO2: 100 Resp Rate: 16 Temperature: 36.6 C Blood Pressure: 110/70
[2018-01-14] MEDS ORDERED: Esmolol 100 MG/10 ML SDV ONE (10:13)
[2018-01-14] MEDS ORDERED: Metoprolol Tartrate 5 MG/5 ML SDV ONE (10:13)
--- NOTE | 2018-01-14 10:14 | CR ---
Thoracolumbar spine: Six fluoroscopic spot views were obtained at the thoracolumbar junction during vertebroplasty procedure. Study obtained utilizing C-arm device. Study shows vertebroplasty procedures within T11, T12 and L1. T12 vertebroplasty is old. Other vertebroplasties are new. Fluoroscopy time given as 462.4 seconds. Impression: 1. Procedural study as noted above. Diagnostic code #2
--- NOTE | 2018-01-15 10:25 | OR ---
DATE OF OPERATION: 01/14/2018 SURGEON: Wero Trevino MD PREOPERATIVE DIAGNOSIS: 1. Severe painful osteoporotic compression fractures of T11. 2. Severe osteoporotic compression fracture of L1 with intractable pain. POSTOPERATIVE DIAGNOSIS: 1. Severe painful osteoporotic compression fractures of T11. 2. Severe osteoporotic compression fracture of L1 with intractable pain. ANESTHESIA: Sedation with local anesthetic. OPERATION PERFORMED: 1. Kyphoplasty fracture stabilization of T11 vertebral body. 2. Biopsy of T11 vertebral body. 3. Kyphoplasty fracture stabilization, L1 vertebral body. 4. Biopsy of L1 vertebral body. DESCRIPTION OF PROCEDURE: The patient was taken to the operative room in a supine position, was placed under a light sedation, and then transferred to the operating table in a prone position. Once the patient was positioned on the operating room table for fluoroscopy, for approach to the T11-L1 area, the operation proceeded with prepping and draping by standard technique. After prepping and draping, the operation proceeded to the L1 level for the stabilization. The pedicles were then identified and marked on the skin. Then, local infiltration was carried out with 1% lidocaine and epinephrine on both sides through the skin down to the pedicle area. Once that was completed, stab incisions were used, right and left side. The kyphoplasty instrumentation cannula was then introduced on both the right and left sides and advanced to the posterior vertebral wall. Biopsies were taken of the vertebra itself. In the course of the biopsy, suction brought out approximately 2.5 mL of serosanguineous fluid from the main body of the vertebral body, which was evident on the MRI. Once that was evacuated, the operation proceeded with placement of cement. 6 mL of cement was placed in the vertebral body. It was noted that the cement would localize to the anterior- superior area, where the cyst had formed, and the bulk of the cement appeared to be in that area to support the vertebral body itself. Once the cement was in place and hardened, the instruments were withdrawn. Good filling was obtained in both AP and lateral. The operation then proceeded to the T11 site. The pedicles were then marked, and the skin was then infiltrated with 1% lidocaine with epinephrine. The operation then proceeded with stab incisions being used and then the kyphoplasty cannula was introduced into the pedicle on the right and left sides through the pedicle to the posterior vertebral wall. Biopsies were then taken of the T11 vertebra, which was a little bit more stable, but still very soft as compared to the L1. The operation then proceeded with placement of 4 mL of cement and what immediately happened on introduction of the cement, there was posterior extravasation of the cement with the second mL was applied on the left side, that extended to just under the posterior longitudinal ligament. It was opted to stop any more filling of cement. Maximal 4 mL was placed in the vertebral body itself giving a good fill. Once the cement was hardened, the cannulas were then withdrawn. The operation proceeded with hard copy x-rays being taken in both AP and lateral. Once that was completed, the skin was then closed with 3-0 Prolene. Standard dressings were applied. The patient tolerated this procedure well. She left the operating room in a stable condition to room for recovery. ESTIMATED BLOOD LOSS: MMODAL /[id number]
== END 2018-01-14 11:15 | disposition home or self-care (01) ==
LOC: JD.SDS 06:21
PROVIDERS: ATTEND Specialist
DX: M80.08XA Age-related osteoporosis with current pathological fracture, vertebra(e), initial encounter for fracture (principal); I10 Essential (primary) hypertension; I48.91 Unspecified atrial fibrillation; Z88.0 Allergy status to penicillin; Z88.1 Allergy status to other antibiotic agents; Z88.8 Allergy status to other drugs, medicaments and biological substances; Z79.899 Other long term (current) drug therapy
CPT/HCPCS: 22513; 22514; A9270; C1713; J0690; J1100; J2405; J3010; J7120; Q9967; 76000-26; J2704; J3370; J3490